=== PATIENT | male | born 1940 | race Caucasian/White ===

== ENCOUNTER 2016-07-21 12:16 | Inpatient (IN) | payer OTHER ==
--- NOTE | ~2016-07-21 | CN ---
Consultation Report [facility] [address] [place]. [address] NAME: KAYY ERAZO : 42 STATUS : ADM IN PAT#: [id number] AGE: 76 ADM/REG DATE : 07/21/16 MR#: [id number] REPORT SERV DATE: 07/22/16 DICTATED BY: BAKARI NATARAJAN DATE: 07/22/16 REPORT STATUS : Draft TRANSCRIBED BY: MODL DATE: 07/22/16 CONSULTATION REPORT DATE OF CONSULTATION: 07/22/2016 REASON FOR CONSULTATION: Evaluate and treat presumed congestive heart failure. HISTORY OF PRESENT ILLNESS: A 76-year-old man, known to me from prior care, followed by Dr. Flores, has history of mildly diminished LVF with estimations varying between 40% and 50%, coronary artery disease with remote coronary stents, 05/10 catheterization demonstrating chronic total occlusion of the right coronary artery with brisk collateral filling, carotid disease, hypertension, hypercholesteremia, critical aortic stenosis, 07/12 TAVR at [place]. The patient denies recent melena, nosebleeds, hematemesis, and chest pain. He was admitted with confusion, was found to have anemia and worsening renal function. PAST MEDICAL HISTORY: 1. CAD - CT of the right coronary artery identified. Reported stents, but no documentation is available. 2. Status post TAVR. 3. Carotid disease and remote stroke - 05/11 duplex without critical stenosis. 4. Hypercholesterolemia. 5. Hypertension. 6. Chronic kidney disease. 7. Cardiomyopathy - presumed ischemic cardiomyopathy with 05/10 echo estimating LVEF 45% to 50%, 05/10 LVEF 40% with posterobasal akinesis, and 08/10 echo estimating LVEF 50%. 8. Chronic kidney disease. HOME MEDICATIONS: Atorvastatin 40 mg daily, omeprazole 40 mg daily, tamsulosin 0.4 mg daily, fenofibrate 160 mg daily, amlodipine 5 mg daily, Lasix 40 mg daily, Plavix 75 mg daily, aspirin 81 mg daily, carvedilol 12.5 mg once a day, and KCl supplement. ALLERGIES: MORPHINE, STREPTOMYCIN, PENICILLIN, AND TERRAMYCIN. SOCIAL HISTORY: The patient x2 with two children. 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 He is a former smoker of up to three packs a day, having quit some 40 years ago. He does not drink alcohol. He does not exercise. FAMILY HISTORY: Noncontributory. REVIEW OF SYSTEMS: Recent confusion. PHYSICAL EXAMINATION: Consultation Report [facility] [address] [place]. [address] NAME: KAYY ERAZO : 42 STATUS : ADM IN [facility]#: [id number] AGE: 76 ADM/REG DATE : 07/21/16 MR#: [id number] REPORT SERV DATE: 07/22/16 DICTATED BY: BAKARI NATARAJAN DATE: 07/22/16 REPORT STATUS : Draft TRANSCRIBED BY: MODL DATE: 07/22/16 GENERAL: In no acute distress. VITAL SIGNS: 167/70, respirations 18, temperature 97.5, pulse 64 and regular. NECK: No JVD. Bilateral carotid bruits. LUNGS: Clear with diminished breath sounds at both bases. CARDIAC: 2/6 systolic murmur. No diastolic murmur. Nondisplaced PMI. ABDOMEN: Obese. EXTREMITIES: +1/4 bilateral pretibial pitting edema. LABORATORY DATA: BUN and creatinine 31 and 3.37 yielding EGFR 20. Hematocrit 21.3% and platelet count 121,000. Troponin I 0.03 and BNP 1117. EKG: Sinus rhythm at a rate of 70, normal axis intervals, poor R-wave progression, V1 through V4. Echocardiogram today with nominal aortic valve function noted. LVEF 40%. Mild mitral stenosis and mitral regurgitation. ASSESSMENT AND PLAN: 1. Anemia - is symptomatic. Defer workup. We transfused hematocrit around 30% because he has elevated BNP, which is likely precipitated by metabolic stress of anemia. 2. Ischemic cardiomyopathy - has had mildly reduced LVF. Increased symptoms and BNP likely precipitated by metabolic stress of anemia. Transfuse as above. Reduce blood pressure starting with hydralazine given his chronic kidney disease. Hydralazine 25 mg q.8 hours ordered. 3. Chronic kidney disease/? acute kidney injury - deferred. 4. PAD - stable. 5. Coronary artery disease - no angina. Continues on aspirin and Plavix. 6. Carotid disease - has had history of stroke. Now on dual antiplatelet therapy and asymptomatic. 7. Status post aortic valve replacement - nominal function by echo. 8. Mitral stenosis and mitral regurgitation - mild. Thank you for this consultation. /MODL Bakari Natarajan M.D. / [id number] CC: Jacoby Sanchez, DO Consultation Report [facility] [id number] [place] [address] NAME: KAYY ERAZO : 41 STATUS : ADM IN PAT#: [id number] AGE: 76 ADM/REG DATE : 07/21/16 MR#: [id number] REPORT SERV DATE: 07/22/16 DICTATED BY: BAKARI NATARAJAN DATE: 07/22/16 REPORT STATUS : Draft TRANSCRIBED BY: MODL DATE: 07/22/16 Venancio Flores M.D.
--- NOTE | ~2016-07-21 | CN ---
Consultation Report [facility] [address] [place]. [address] NAME: KAYY ERAZO : 42 STATUS : ADM IN [facility]#: [id number] AGE: 76 ADM/REG DATE : 07/21/16 MR#: [id number] REPORT SERV DATE: 07/27/16 DICTATED BY: AUBREY JERRY III DATE: 07/26/16 REPORT STATUS : Draft TRANSCRIBED BY: MODL DATE: 07/26/16 SURGICAL CONSULTATION DATE OF CONSULTATION: 07/26/2016 HISTORY OF PRESENT ILLNESS: The patient is a 76-year-old white male admitted on 07/21/2016 secondary to decompensated heart failure. The patient has numerous comorbid issues and has been evaluated for a number of these during this hospitalization. He has been seen by the Nephrology Service for significant chronic kidney disease, which has been progressive of late. The patient has also been seen by the Urology Service and noted to have some abnormal findings on cystoscopy involving his bladder with an abnormal trabeculation and could not find the left ureteral orifice, but no other findings were noted and no removal of stones was accomplished, even though the patient allegedly has a bladder stone as well as some other renal stone issues. The patient has also been seen by the Hematology Service for a cytopenia that was felt to be secondary to acute illness and low vitamin B12, but no other issues were identified. The patient has improved with therapy including diuretics and seems to be more "himself." The patient was also noted to have some encephalopathy when admitted and his ammonia level was elevated, presumably due to his heart failure and congestive liver disease. The patient also has COPD and greater than 40 pack year history of smoking, but has not smoked since he was 46 years old. MEDICATIONS: His home medications are as follows: The patient is on Norvasc 5 mg daily, 81 mg enteric coated daily, Lipitor 40 mg at bedtime, Coreg 25 mg twice a day, Plavix 75 mg daily, fenofibrate 160 mg daily, Lasix 40 mg daily, Prilosec 40 mg at bedtime, potassium chloride 20 mEq daily, and Flomax 0.4 mg daily. The patient is not on home oxygen. ALLERGIES: THE PATIENT IS ALLERGIC TO PENICILLIN WITH RASH AND NAUSEA; SULFA WITH NAUSEA AND RASH; MORPHINE, CONFUSION; ERYTHROMYCIN BASE, RASH; AND TERRAMYCIN, UNKNOWN REACTION. SOCIAL HISTORY: He lives alone, is , and is able to drive and is fairly independent, but admits that he does not eat properly and eats mostly junk and does not eat square meals per se. FAMILY HISTORY: Noncontributory. SOCIAL HISTORY: As previously stated, he has 45 pack years of cigarette use, but presently has been off cigarettes for a number of years; when he had his first heart attack when he was 46 years old, he stopped. His alcohol use is none, although he drank some beer many years ago. The patient does not really do much. 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 REVIEW OF SYSTEMS: Consistent with a pleasant gentleman, seemingly alert and oriented x3 with no acute distress Consultation Report [facility] [id number] [facility] [place]. [address] NAME: KAYY ERAZO : 42 STATUS : ADM IN PAT#: [id number] AGE: 76 ADM/REG DATE : 07/21/16 MR#: [id number] REPORT SERV DATE: 07/27/16 DICTATED BY: AUBREY JERRY III DATE: 07/26/16 REPORT STATUS : Draft TRANSCRIBED BY: ISABELLA DATE: 07/26/16 at the time of this exam with a binasal cannula in place, IV going, and the patient was up ambulatory going to the bathroom unassisted. The patient's history of chronic obstructive pulmonary disease is documented. He has a history of a TAVR valve placed a couple of years ago at [facility] in [place] and feels like he is doing well from that. He has a history of a CVA or stroke back in 2009 and feels that this affected his vision. He has a past history of hypertension, first myocardial infarction at age 46, history of a significant heart murmur, history of high cholesterol, history of coronary artery disease with an occluded right coronary and collateralization, history of aortic stenosis post TAVR valve, history of heart catheterizations and stents. 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 He has a history of arthritis, gastroesophageal reflux disease, and hiatal hernia, which seems to be controlled with his proton pump inhibiting medication. He has a history of kidney stones and benign prostatic hypertrophy, followed by Dr. Sp Tanner. He had a cysto and TURP more than five years ago. PHYSICAL EXAMINATION: GENERAL: The patient is an ill-appearing, mildly obese white male, in no acute distress. HEENT: Showed no lateralization. NECK: Supple with arthritic changes only. CHEST: Showed increased AP diameter with decreased inspiratory effort and a few scattered rhonchi. ABDOMEN: Soft and nontender with no organomegaly. No rebound tenderness. Bowel sounds were normal, and his abdomen was protuberant, but without hernias or organomegaly changes. EXTREMITIES: Grossly anatomic and atrophic. NEUROLOGIC: He is alert and oriented x3, but a little confused when asked very complex questions. Workup on the patient to this point has revealed significant findings regarding his gallbladder with his initial CT scan done on 07/21/2016, showing significant gallbladder stones in the neck of the gallbladder and some contraction of the gallbladder was mentioned on the CT scan with thickening of the gallbladder wall with the stones noted to be in the gallbladder neck. On 07/22/2016, the patient's liver function tests were noted to be normal with normal bilirubin, both direct and indirect, and alkaline phosphatase was also normal. He had an ultrasound done on 07/24/2016 that showed slight wall thickening with stones noted again and the ducts were not dilated. HIDA scan done on 07/25/2016 showed an ejection fraction of 11% with gallbladder filling in approximately 45 minutes with a normal bowel excretion. The patient's BNP on admission was 1117.4. His hemoglobin A1c was 4.5 and his ammonia was elevated at 41. ADMITTING DIAGNOSES: Decompensated heart failure; chronic obstructive pulmonary disease; coronary artery disease with occluded right coronary with collaterals; pancytopenia; acidosis; progressive chronic kidney disease; history of cholelithiasis dating back to at least 2010; encephalopathy, presumably related to elevated ammonia; abnormal bladder with trabeculation and stones in the urinary system. The patient is chronically anticoagulated with Plavix and aspirin. Consultation Report [address] [place]. [address] NAME: KAYY ERAZO : 42 STATUS : ADM IN [facility]#: [id number] AGE: 76 ADM/REG DATE : 07/21/16 MR#: [id number] REPORT SERV DATE: 07/27/16 DICTATED BY: AUBREY JERRY III DATE: 07/26/16 REPORT STATUS : Draft TRANSCRIBED BY: ISABELLA DATE: 07/26/16 IMPRESSION: He has essentially asymptomatic gallbladder disease, although he does give a history of some heartburn in the past, but that was relieved by Tums and is actually better on the proton pump inhibitor at this point. He is at very high risk for any type of surgery or general anesthesia, but not prohibitive risk. Would recommend surgery only if he develops symptoms, and I have spent time discussing with the patient the types of symptoms to be aware of and need to be in contact with his physicians, especially his surgeon if he is developing these types of symptoms, which were enumerated and spent approximately 15 minutes going over the symptoms and expectations of gallbladder disease should symptoms develop. I have discussed with the patient the risk of surgery and risk of anesthesia in his present condition and the concern with the overall comorbid issues that the patient clearly has. MECHE/ISABELLA Aubrey Jerry III, M.D. / [id number] CC: Riki Catalan M.D. Alexander Stratienko, M.D. Oliver Benton III, M.D.
--- NOTE | ~2016-07-21 | HP ---
History And Physical [place] [id number] [facility] [place]. [address] NAME: KAYY ERAZO : 42 STATUS : ADM IN [facility]#: [id number] AGE: 76 ADM/REG DATE : 07/21/16 MR#: [id number] REPORT SERV DATE: 07/24/16 DICTATED BY: ROSSY BATISTA DATE: 07/21/16 REPORT STATUS : Draft TRANSCRIBED BY: MODL DATE: 07/21/16 DATE OF ADMISSION: 07/21/2016 REASON FOR ADMISSION: Shortness of breath. PRIMARY CARE DOCTOR: Appears to be unclear. Sees a airline hostess [facility], Dr. Gaspar. HISTORY OF PRESENT ILLNESS: This is a 76-year-old male with a known history of critical aortic stenosis, had a TAVR in September 2014 under the care of Dr. Alfaro, known history of ischemic cardiomyopathy, LVEF last known 40%, known history of BPH, history of stroke, hypertension, history of CAD with a known heart catheterization showing occluded RCA with collaterals. The patient comes in from Dr. Gaspar's office with significant PND, shortness of breath, as well as having a mild nonproductive cough, thought to have been near to baseline creatinine of 2.5 and 3.0 with a presenting creatinine of 3.11. The patient has been endorsing significant shortness of breath. The family states he has been hallucinating, thinking that there are dogs in the house and does not know where he is. On questioning today, he is A and O x4. He is a bit slow to speech. The patient denies any focal neurological weakness or decreased sensation. Chest x-ray with bilateral alveolar infiltration. The patient denies any fevers or chills. No nausea. No vomiting. No diarrhea. No chest pain. No chest pressure. Positive shortness of breath. Noted BNP 1100. The patient states he has had increased abdominal distention, is well and increased weight gain. PAST MEDICAL HISTORY: See above. PAST SURGICAL HISTORY: See above. ALLERGIES: SULFA, HIVES; PENICILLIN, HIVES; TERRAMYCIN, UNKNOWN REACTION; MORPHINE, QUESTIONABLE. SOCIAL HISTORY: Does have about a possible [id number] history of smoking in the past, smoked about 2 to 3 packs a day, multiple years ago for several years. No alcohol. No drug use. HOME MEDICATIONS: See MAR. We will continue what is relevant. FAMILY HISTORY: Hypertension at least in one parent. REVIEW OF SYSTEMS: Done, negative see HPI, otherwise negative. OBJECTIVE: VITAL SIGNS: Currently, was 150/66, 97.1, temp 87, pulse 20, respirations, 93% on 2 L. Not on home oxygen. GENERAL: No acute distress. History And Physical [address] [address] NAME: KAYY ERAZO : 42 STATUS : ADM IN [facility]#: [id number] AGE: 76 ADM/REG DATE : 07/21/16 MR#: [id number] REPORT SERV DATE: 07/24/16 DICTATED BY: ROSSY BATISTA DATE: 07/21/16 REPORT STATUS : Draft TRANSCRIBED BY: ISABELLA DATE: 07/21/16 HEENT: SNEHA. No scleral icterus. CARDIOVASCULAR: Does have a 2/6 systolic aortic murmur. RESPIRATORY: Minimal bibasilar crackles. Mild expiratory wheezes. ABDOMEN: Positive distention, mild tenderness to palpation, periumbilical, mild. No rebound tenderness. No peritoneal signs. EXTREMITIES: A 1 to 2+ pitting edema, left greater than right. NEUROLOGIC: A and O x4. GCS is 15, but a bit slurred speech. PSYCH: Unable to assess given neuro status. LABS: White count 2.8, hemoglobin 7.2, MCV 92, platelets 133,000, 145 sodium, potassium 4.1, 25 creatinine, baseline likely 2.5-3.0, GFR 20 per the family, 26 BUN, BNP 1100, ABG 10.42/28/57, 21%, troponins negative. EKG: Has an incomplete intraventricular conduction delay. ST-segment elevation in leads V2 but that is isolated. ASSESSMENT: 1. Acute decompensated heart failure, LVEF last known 40%, status post TAVR in 2014. 2. Clinical chronic obstructive pulmonary disease with wheezing, 3 out 3 GOLD criteria, may be mucopurulent 1 time cough. 3. History of coronary artery disease with occluded RCA with collaterals. 4. Pancytopenia with systemic inflammatory response syndrome. 5. Acidosis. 6. Progressed chronic kidney disease. PLAN: 1. Admit to myself, Dr. Batista. Has elevated BNP, alveolar infiltration, positive PND. As a result, we will ask Dr. Alfaro to follow along, given that this is his patient. Angel with Bumex t.i.d. Get an echo if not done in the last six months. Get a CT of the abdomen and pelvis regarding the ascites to rule out any liver cirrhosis, CMP and QT, bilateral lower extremity ultrasounds. Also, we will go ahead and place him on low-dose carvedilol given heart failure, 1.5 L fluid restriction. 2 g sodium restricted diet. Stool guaiac given his pancytopenia, Protonix 40 IV b.i.d. Transfuse less than 7. Slow transfusion rate 4 hours per TRBC. 2. Given his hallucination history, it may have been hypoxia associated. His CT of the head without ammonia, B12, folate, given wheezing Solu-Medrol, Spiriva, and get a peripheral smear regarding pancytopenia. See rest of my orders. The patient has been placed on Levaquin and Flagyl until his sepsis workup is completed. It took over 60 minutes to do. Reference [employer] and [employer]. WST/MODL Rossy Batista DO History And Physical [address] [address] NAME: KAYY ERAZO : 42 STATUS : ADM IN PAT#: [id number] AGE: 76 ADM/REG DATE : 07/21/16 MR#: [id number] REPORT SERV DATE: 07/24/16 DICTATED BY: ROSSY BATISTA DATE: 07/21/16 REPORT STATUS : Draft TRANSCRIBED BY: MODL DATE: 07/21/16 / [id number] CC: DO Venancio Luz M.D.
--- NOTE | ~2016-07-21 | CN ---
Consultation Report [facility] [address] [place]. [address] NAME: KAYY ERAZO : 42 STATUS : ADM IN [facility]#: [id number] AGE: 76 ADM/REG DATE : 07/21/16 MR#: [id number] REPORT SERV DATE: 07/23/16 DICTATED BY: JEANNA MARIE DATE: 07/22/16 REPORT STATUS : Draft TRANSCRIBED BY: MODL DATE: 07/22/16 CONSULTATION DATE OF CONSULTATION: 07/22/2016 I am seeing this patient for Dr. Tanenr in his absence. This consult is from Dr. Sanchez regarding hydroureteronephrosis on the left. 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 He was found to have a creatinine of 3.11, which is significantly increased from his baseline of 1.4. Since admission, he has been continuing to have an elevation of his creatinine. It is 3.[address] scan was performed to see if there was any obstructive component. I did find left hydroureteronephrosis and read a left distal ureteral stone. Dr. Guerra and I looked at the films together today. The hydroureteronephrosis occurs next to a calcification. If this is a calcification in the ureter, it is embedded in the wall without edema. It may very well actually be a calcification in a ureteric vessel. The hydronephrosis of the ureter is mild to moderate. It does not transmit into the renal pelvis significantly. He did have a postvoid residual urine performed. He voided 350 mL and his postvoid residual urine was 340 mL. He was offered a catheter at that time but refused stating catheters made him sick. A CT scan also showed some findings which could be consistent with cholecystitis but his liver function tests are normal and he has none of those symptoms either. It is quite worrisome today that his white blood cell count decreased to 1.8, hemoglobin is 6.8, and he is currently receiving blood. The patient specifically denies any difficulty voiding. He has been chronically on Flomax for a number of years. He states that each time he sees Dr. Tanner in the office, he is told everything looks fine. I do not have access to his records, so I am not entirely certain if it means he looks fine from the stone standpoint or the PSA standpoint or what. PAST MEDICAL HISTORY: Significant for chronic kidney disease, currently worsening; peripheral vascular disease; cardiovascular disease; kidney stones; hypertension; gastroesophageal reflux disease; history of an SC; hyperlipidemia. SURGICAL HISTORY: He had balloon dilation and coronary artery stents placed in July 2013. SOCIAL HISTORY: He used to smoke cigarettes but does not currently. He is . Denies any alcohol use. ALLERGIES: PENICILLIN, SULFA, MORPHINE, ERYTHROMYCIN BASE, STREPTOMYCIN. MEDICATIONS ON ADMISSION: Norvasc, aspirin 81 mg a day, Lipitor, Coreg, Plavix, fenofibrate, Consultation Report [address] [address] NAME: KAYY ERAZO : 42 STATUS : ADM IN [facility]#: [id number] AGE: 76 ADM/REG DATE : 07/21/16 MR#: [id number] REPORT SERV DATE: 07/23/16 DICTATED BY: JEANNA MARIE DATE: 07/22/16 REPORT STATUS : Draft TRANSCRIBED BY: MODL DATE: 07/22/16 Lasix, Krystinalosec, Libanor-Reji, and Flomax. REVIEW OF SYSTEMS: GENERAL: He denies fever or chills. NEUROLOGIC: He was having hallucinations upon admission. The nursing staff states they have seen no signs of that since admission. LUNGS: As above. HEART: As above. GI: Denies symptoms. : The patient denies symptoms. PHYSICAL EXAMINATION: VITAL SIGNS: He has been afebrile. Blood pressure 167/70, pulse of 64, respirations of 18. 2 L nasal cannula, saturating 93%. He had 700 mL in yesterday and 460 mL out. GENERAL: He is in no acute distress. NEUROLOGIC: Alert and oriented x3. PSYCHIATRIC: Appropriate. HEENT: Facial features symmetric. Eyes, sclerae anicteric. NECK: Supple. LUNGS: He has decreased inspiratory effort bilaterally. HEART: Regular rate and rhythm. ABDOMEN: Obese and soft. His bladder is not palpable. EXTREMITIES: Show 3+ pitting edema bilaterally. : Revealed uncircumcised phallus with a large cyst of the foreskin on the ventral aspect. The cyst is nontender and fluctuant, is not solid, is not worrisome for a mass. The foreskin is easily retracted. His meatus is normal. Bilateral descended testes without masses. LABORATORY STUDIES: Today show sodium of 144, potassium of 4.3. His creatinine has increased to 3.37. White blood cell count has dropped to 1.8 with hemoglobin of 6.8 and hematocrit of 21.3 and platelets of 121. CT scan as stated above. PROCEDURE: I discussed with the patient that his kidney function is deteriorating. I explained to him that he is leaving urine behind even though he does not feel like he is. I recommended that we add another medication to his Flomax; however, it will not take effect immediately. He does state he does not want to be on dialysis. I recommended we place a Erickson catheter and see if having the catheter in place and draining for several days helps any with his kidney function. After discussion, the patient agrees to allow me to place Erickson catheter. After prep, an 18-Azerbaijani coude catheter was placed, 10 mL were placed in the balloon and the balloon was seated at the bladder neck. 300 mL of malodorous cloudy urine was drained. Erickson catheter was secured to the patient. IMPRESSION: Consultation Report [place] [id number] [facility] [place]. [address] NAME: KAYY ERAZO : 42 STATUS : ADM IN [facility]#: [id number] AGE: 76 ADM/REG DATE : 07/21/16 MR#: [id number] REPORT SERV DATE: 07/23/16 DICTATED BY: JEANNA MARIE DATE: 07/22/16 REPORT STATUS : Draft TRANSCRIBED BY: ISABELLA DATE: 07/22/16 1. Mild urinary retention, possibly infected urine. 2. Cyst of the foreskin. 3. Left hydroureteronephrosis with calcification near or in the ureter but not responsible for the hydronephrosis. 4. Increasing creatinine. PLAN: 1. Add finasteride. 2. Send urine for culture. 3. We will see if his creatinine responds to bladder drainage. 4. We will have Dr. Tanner address the foreskin cyst as an outpatient. ELIZABETH/ISABELLA Jeanna Marie M.D. / [id number] CC: DO Venancio Luz M.D.
--- NOTE | ~2016-07-21 | OP ---
Record Of Operation [facility] [address] [place]. [address] NAME: KAYY ERAZO : 42 STATUS : ADM IN [facility]#: [id number] AGE: 76 ADM/REG DATE : 07/21/16 MR#: [id number] REPORT SERV DATE: 07/25/16 DICTATED BY: SP GARCIA III DATE: 07/25/16 REPORT STATUS : Draft TRANSCRIBED BY: MODL DATE: 07/25/16 DATE OF PROCEDURE: 07/25/2016 PROCEDURE: Cystoscopy attempted retrograde and cystogram. PREOPERATIVE DIAGNOSIS: Left ureteral dilatation with possible ureteral calculus. POSTOPERATIVE DIAGNOSIS: Left ureteral dilatation with possible ureteral calculus. ANESTHESIA: General. SURGEON: Sp Garcia M.D. DESCRIPTION OF PROCEDURE: Following induction of adequate general anesthesia, the patient was placed in the dorsal lithotomy position, prepped and draped in sterile fashion. The urethra was noted to have some wide-bore strictures. Upon entering the prostate, the prostatic lobes met in the midline more toward the bladder neck. There was a previous resection that had been done by me. The bladder neck was severely upsloping and I was able to maneuver the scope into the bladder neck, but the scope was somewhat fixed. It was severely trabeculated with numerous cellules and diverticula. I put the 70-degree lens in and found the right orifice. The left orifice was not visible in the trigonal ridge. It appeared to be within a diverticulum, which I could not negotiate with the rigid or the flexible scope. I then attempted to put a catheter and do a cystogram to see if this dilatation might be reflux and had problems getting up and over the bladder neck. I have scoped this patient number of times and had similar problems. I was finally able to put a catheter and over a guide, we did a cystogram that showed a very trabeculated bladder. No reflux. I left the catheter in place. IMPRESSION: Left dilatation. The patient has, for a number of years, had bilateral hydronephrosis; however, nuclear scan showed no obstruction and his creatinine had remained normal. I am not sure this calcification is actually in the ureter. There is dilatation below the calcification and I think the obstruction is at the bladder level. To access this, probably would require a nephrostomy. He tolerated the procedure well. OB/MODL Sp Garcia III, M.D. / [id number] CC: Riki Catalan M.D.
--- NOTE | ~2016-07-21 | CN ---
Consultation Report [facility] [address] [place]. [address] NAME: KAYY RENTERIA : 42 STATUS : ADM IN [facility]#: [id number] AGE: 76 ADM/REG DATE : 07/21/16 MR#: [id number] REPORT SERV DATE: 07/26/16 DICTATED BY: NACHO NAZARIO DATE: 07/26/16 REPORT STATUS : Draft TRANSCRIBED BY: MODL DATE: 07/26/16 CONSULTATION DATE OF CONSULTATION: REASON FOR REFERRAL: Pancytopenia. HISTORY OF PRESENT ILLNESS: Mr. Renteria is a gentleman who presented to the hospital on 07/21/2016. He presented with hallucinations, worsening renal function, bilateral pulmonary infiltrates. He was quite ill and has improved since that time. He had a CBC on admission with a white blood cell count of 2.8, hemoglobin 7.2, and platelets of 133,000. His white count the next day dropped to 1.8 with a hemoglobin of 6.8 and platelets of 121,000. Peripheral blood smear at that time showed no tumor cells and no left shift. He has clinically improved and his white count and platelets have improved, both were normal yesterday. His mild leukopenia today. He does have some chronic anemia related to chronic kidney disease. B12 level was sent which was borderline. As noted above, he has chronic kidney disease and chronic anemia. He has chronic heart disease status post TAVR, that is improved and heart failure which is intermittently problematic. REVIEW OF SYSTEMS: Complete review of systems is negative. FAMILY HISTORY: Negative for blood disease. PHYSICAL EXAMINATION: GENERAL: Reveals a well-developed gentleman. VITAL SIGNS: 96.6, 114/56, 73, 16. HEENT: Eye exam shows that the lids and conjunctivae are without lesions. Mouth shows no abnormalities. SKIN: Shows no rash or nodules. LYMPH NODE SURVEY: Shows no adenopathy. CARDIOVASCULAR: Reveals regular rate and rhythm. There is a 1/6 murmur. There is trace peripheral edema. LUNGS: Clear to auscultation bilaterally. Normal respiratory effort. GI: Shows no mass or abnormality. PSYCHIATRIC: Shows a somewhat flat affect. NEUROLOGIC: Shows cranial nerves to be grossly intact. DATA REVIEW: Reviewed all of his laboratory studies and old records as noted above. ASSESSMENT: 1. Pancytopenia related to his acute illness, now resolved. Consultation Report [facility] [address] [place]. [address] NAME: KAYY RENTERIA : 42 STATUS : ADM IN PAT#: [id number] AGE: 76 ADM/REG DATE : 07/21/16 MR#: [id number] REPORT SERV DATE: 07/26/16 DICTATED BY: NACHO NAZARIO DATE: 07/26/16 REPORT STATUS : Draft TRANSCRIBED BY: MODL DATE: 07/26/16 2. Chronic anemia, which is stable. 3. Borderline B12 level. I recommend 1 mg of B12 orally daily. This should be able to replace his levels through mass action (rather than active absorption). 4. As his counts are better, I will be available as needed. OPAL/ISABELLA Nacho Nazario M.D. / [id number] CC: Riki Catalan M.D. Stuart G Ginther, M.D.
--- NOTE | ~2016-07-21 | ECH ---
Echocardiogram [address] [place]. [address] NAME: KAYY ERAZO : 42 STATUS : ADM IN [facility]#: [id number] AGE: 76 ADM/REG DATE : 07/21/16 MR#: [id number] REPORT SERV DATE: 07/24/16 DICTATED BY: BAKARI ALFARO DATE: 07/22/16 REPORT STATUS : Draft TRANSCRIBED BY: MODL DATE: 07/22/16 ORDERING: Jacoby Sanchez DO. INDICATIONS: Heart failure, status post aortic valve replacement. STUDY QUALITY: Fair. MEASUREMENTS (in cm) Aortic Root = 2.7. Septal Wall = 1.3 Posterior Wall = 1.3 LV Diastolic = 5.2 LV Systolic = 3.6 Left Atrium = 4.8 MARLEN: 47 mL/meter square. LVEF: By Castro's method 40% (may differ from visual estimation of LVEF). E/A: Undefined. 2-D INTERPRETATION: 1. Aortic Valve: Well-seated aortic valve bioprosthesis. 2. Aortic Root: Normal. 3. Mitral Valve: Heavy mitral annular calcification with leaflet thickening. Adequate and diastolic leaflet excursion to rule out critical mitral stenosis. 4. Tricuspid Valve: Morphologically normal without prolapse. 5. Pulmonic Valve: Grossly normal. 6. Left Ventricle: mild global hypocontractility with ejection fraction estimated to be in the range of 40%. 7. Right Ventricle: Normal. 8. Pericardial Space: No effusion. 9. Intracardiac Masses: None. 10.Other: None. 11.Atria: Mild left atrial dilatation. DOPPLER/COLOR FLOW: No AR. Peak transvalvular prosthetic valve gradient 13 mmHg. Mitral valve area by pressure half time 3.3 sq cm. 1+ TR. 1+ NC. 2+ MR. FINAL IMPRESSION: 1. Mild left ventricular hypertrophy. 2. Normal left Ventricular size. 3. Mild left ventricular global hypocontractility with ejection fraction estimated 40%. 4. Well-seated mitral valve bioprosthesis. 5. Mild mitral valve stenosis and mild mitral regurgitation. 6. Nominal aortic valve bioprosthetic gradient. 7. Indeterminate pulmonary artery pressure. /MODL Echocardiogram [address] [place] [address] NAME: KAYY ERAZO : 42 STATUS : ADM IN PAT#: [id number] AGE: 76 ADM/REG DATE : 07/21/16 MR#: [id number] REPORT SERV DATE: 07/24/16 DICTATED BY: BAKARI ALFARO DATE: 07/22/16 REPORT STATUS : Draft TRANSCRIBED BY: ISABELLA DATE: 07/22/16 Bakari Alfaro M.D. / [id number] CC: DO Venancio Luz M.D.
--- NOTE | ~2016-07-21 | DS ---
Discharge Summary [place] [id number] [place]. [address] NAME: KAYY ERAZO : 42 STATUS : ADM IN [facility]#: [id number] AGE: 76 ADM/REG DATE : 07/21/16 MR#: [id number] REPORT SERV DATE: 07/27/16 DICTATED BY: SILVIA LUDWIG DATE: 07/27/16 REPORT STATUS : Draft TRANSCRIBED BY: ISABELLA DATE: 07/27/16 ADMISSION DATE: 07/21/2016 DISCHARGE DATE: DIAGNOSES: 1. Enckj-uf-czrawxg systolic congestive heart failure exacerbation/ischemic cardiomyopathy with ejection fraction of 45%. 2. Chronic obstructive pulmonary disease exacerbation. 3. Pancytopenia, improved. 4. Gallbladder disease. 5. Stage IV chronic kidney disease. 6. Encephalopathy, resolved. 7. Left mild hydronephrosis with nephrolithiasis. FOLLOWUP: The patient is to follow up with his urologist, Dr. Tanner, and also the patient is to follow up with the primary care physician in one to two weeks and to follow with Dr. Stuart Jerry, General Surgery, for chronic gallbladder disease in three to four weeks and to follow up with Dr. Alfaro in two weeks, his mold filler, and also the patient is to follow up with his compressor battery pellets, Dr. Gaspar, in one week. DISCHARGE MEDICATIONS: Amlodipine 5 mg p.o. daily, enteric-coated aspirin 81 mg p.o. daily, Lipitor 40 mg p.o. at bedtime, Coreg 12.5 mg p.o. b.i.d., Plavix 75 mg p.o. daily, vitamin B12 at 1000 mcg p.o. daily, fenofibrate 160 mg p.o. daily, Levaquin 750 mg p.o. q.48 hours for 2 doses, sodium bicarb 650 mg p.o. b.i.d., Prilosec 40 mg p.o. at bedtime per home dose, tamsulosin 0.4 mg p.o. b.i.d., torsemide 20 mg p.o. daily. The patient was informed to stop his Lasix. Hydralazine 75 mg p.o. t.i.d., Flagyl 500 mg p.o. t.i.d. for four days, Combivent Respimat one puff inhaled q.6 hours, albuterol MDI two puffs inhaled every four hours p.r.n. CONSULTANTS: Nephrology, Dr. Gomez; Urology, Dr. Marie and Dr. Tanner; Cardiology, Dr. Alfaro; Hematology/Oncology, Dr. Clark. HOSPITALIST: Dr. Jacoby Sanchez, Dr. Ludwig. PROCEDURES: Cystoscopy and attempted retrograde cystogram by Dr. Tanner. HOSPITAL COURSE: Please see H and P dictated by Dr. Jacoby Sanchez. This is a 76-year-old male with a past medical history of ischemic cardiomyopathy, being followed by mold filler, Dr. Alfaro, as well as history of CKD, being followed by [facility] with Dr. Gaspar. The patient also has known history of aortic stenosis, status post TAVR in 2014 and BPH, being followed by urologist, Dr. Tanner, presented with a chief complaint of shortness of breath and some abdominal mild distention secondary to some underlying fluid and fluid overload. The patient was admitted to the hospitalist service, initially seen by Dr. Jacoby Sanchez with a Cardiology consultation to Dr. Alfaro. Also, the patient was placed on lactulose for encephalopathy on admission, which resolved, it is most likely secondary to his congestive heart failure exacerbation. The patient was diuresed and also Discharge Summary [address] [address] NAME: KAYY ERAZO : 42 STATUS : ADM IN [facility]#: [id number] AGE: 76 ADM/REG DATE : 07/21/16 MR#: [id number] REPORT SERV DATE: 07/27/16 DICTATED BY: SILVIA LUDWIG DATE: 07/27/16 REPORT STATUS : Draft TRANSCRIBED BY: MODPop DATE: 07/27/16 his nephrology group with the [facility] was consulted. The patient was seen by Dr. Gomez and his PA. The patient was transitioned over to torsemide for better diuresing. The patient's baseline creatinine was known to be around 3; however, due to diuresing, he did have some progression of his creatinine up to 3.9, and remained around 3.8 to 3.9, which according to Nephrology is a new baseline for the patient. However, in order to improve the creatinine, the patient required more fluid and be back in fluid overload, therefore, cannot tolerate a lot of fluid in his system and was deemed stable for discharge by Nephrology and to follow up in clinic in one week. He was seen also by Urology, Dr. Marie and Dr. Tanner with an attempted cystoscopy and retrograde cystogram, please refer to dictation. The patient did require Erickson catheter during the hospital course and continued to be managed by Urology. The patient also was seen by hematology/oncologist, Dr. Clark, for pancytopenia, which improved with treatment during this hospital course. He was initiated on oral B12 as recommended by Hematology; however, his chronic anemia is multifactorial. Also important to know on admission, the patient had a CT of the abdomen and pelvis without contrast, which revealed partially contracted and thickened gallbladder with mild infiltration with cholelithiasis. It was noted on admission that the patient had some mild epigastric discomfort, which resolved during this hospital course. He did have a followup gallbladder ultrasound that revealed a slight prominence of the gallbladder wall thickness with cholelithiasis, but otherwise negative ultrasound of the gallbladder. He later had a followup HIDA scan that revealed an abnormal response suggesting biliary dyskinesia with ejection fraction of 11%. However, the patient remained afebrile and completely asymptomatic, eating well. No nausea, vomiting. No abdominal discomfort. This was discussed with the patient as well as general surgeon, Dr. Jerry, who was consulted to evaluate the patient. Considering the patient was asymptomatic, I also agree to follow up with the patient as an outpatient. The patient has multiple comorbidities, and at this point, would only recommend surgery only if the patient became symptomatic. He was empirically continued on Levaquin and Flagyl during this hospital course. The patient is to follow up with Dr. Jerry as an outpatient. This also was discussed with his mold filler, Dr. Alfaro, who stated if the patient does require elective surgery, he will risk stratify the patient at that time for preop clearance. At the time of this discharge, the patient was much improved. However, will be checked by nursing staff for any qualification for home oxygen, alert and oriented x3. Ready to return to home. All the patient's diagnoses and recommendations have been explained to the patient in detail. The patient is to follow up closely with his specialists and approved for discharge by all specialists. This discharge required greater than 35 minutes. [facility]/ISABELLA Silvia Ludwig M.D. / [id number] CC: Discharge Summary [address] [address] NAME: KAYY ERAZO : 42 STATUS : ADM IN [facility]#: [id number] AGE: 76 ADM/REG DATE : 07/21/16 MR#: [id number] REPORT SERV DATE: 07/27/16 DICTATED BY: SILVIA LUDWIG DATE: 07/27/16 REPORT STATUS : Draft TRANSCRIBED BY: ISABELLA DATE: 07/27/16 Riki Catalan M.D. Oliver Benton III, M.D. Robert Barnett III, M.D. Alexander Stratienko, M.D. Stuart G Ginther, M.D.
[2016-07-21 11:15] LABS: ALLENS TEST Pos; BE (BASE EXCESS) -5.9 MEQ/L (0 +/- 2.5); CARBOXYHEMOGLOBIN 1.7 % (0-3); HCO3 (ACTUAL BICARBONATE) 17.7 MEQ/L (23-27); HEMOBLOGIN CONTENT 7.6 G/DL (14-18); INSTRUMENT SERIAL # 8087; METHEMOGLOBIN 0.4 % (0-3); O2 CONTENT 9.3 VOL% (18-24); OPERATOR ID 14335; PCO2 (CO2 TENSION) 28 MMHG (35-45); PO2 (O2 TENSION) 57 MMHG (79-93); SAMPLE Arterial; pH 7.42 (7.37-7.43)
[~2016-07-21 12:16] MED LIST: ALLERGY RELIEF; ASAB PO; COREG25 PO; COZAAR100 MG PO; FLOMAX4 PO; K500 PO; LIPITOR40 PO; LOFIB160 PO; LOP50 PO; MONOPRIL HC1 PO; NORV5 PO; PLAVIX PO; PRILO PO; PRILOSEC40 MG PO
[2016-07-21 12:24] LABS: BASOPHILS 0.4 %; BASOPHILS ABSOLUTE 0.01 10/3/uL (0.0-0.16); EOSINOPHILS 1.1 %; EOSINOPHILS ABSOLUTE 0.03 10/3/uL (0.0-0.53); IMMATURE GRANULOCYTES 0.4 %; IMMATURE GRANULOCYTES ABSOLUTE 0.01 10/3/uL (0.0-0.11); LYMPHOCYTES 20.1 %; LYMPHOCYTES ABSOLUTE 0.56 10/3/uL (0.67-4.30); MEAN CORPUS HGB CONC 31.9 g/dL (32.0-36.0); MEAN CORPUSCULAR HEMOGLOB 29.1 pg (26.0-34.0); MEAN CORPUSCULAR VOLUME 91.5 fL (80-100); MEAN PLATELET VOLUME 9.8 fL (9.2-13.0); MONOCYTES 15.4 %; MONOCYTES ABSOLUTE 0.43 10/3/uL (0.21-1.20); NEUTROPHILS 62.6 %; NEUTROPHILS ABSOLUTE 1.75 10/3/uL (2.02-8.40)
[2016-07-21 12:25] LABS: HEMATOCRIT 22.6 % (40.0-51.0); HEMOGLOBIN 7.2 g/dL (13.6-17.8); MANUAL DIFF NO %; PLATELET COUNT 133 10/3/uL (150-400); RBC DISTRIBUTION WIDTH 17.6 % (12.0-16.0); RED CELL COUNT 2.47 10/6/uL (4.7-6.1); WHITE BLOOD CELLS 2.8 10/3/uL (4.5-10.5)
[2016-07-21 12:32] LABS: INTERNATIONAL NORMAL RATI 1.3 UNITS (-)
[2016-07-21 12:33] LABS: PARTIAL THROMBO TIME 36.6 SEC (22.5-37.2)
[2016-07-21 12:49] LABS: B NATRIURETIC PEPTIDE (BNP) 1117.4 PG/ML (< 100.0)
[2016-07-21 12:50] LABS: BUN (BLOOD UREA NITROGEN) 26 MG/DL (6-23); CALCIUM, SERUM 8.1 MG/DL (8.5-10.4); CHEST PAIN PROFILE TAT 0 Hrs 29 Mins; CHLORIDE, SERUM 115 MMOL/L (96-112); CO2 (CARBON DIOXIDE) 20 MMOL/L (24-34); CREATININE 3.11 MG/DL (0.70-1.30); GFR AFRICAN AMERICAN 22 ML/MIN (>=60); GFR NON AFRICAN AMERICAN 19 ML/MIN (>=60); GLUCOSE, SERUM 95 MG/DL (60-99); POTASSIUM, SERUM 4.1 MMOL/L (3.5-5.3); SODIUM, SERUM 145 MMOL/L (135-148); TROPONIN I <0.02 NG/ML (<0.05)
[2016-07-21] MEDS ORDERED: L40 PO (13:51)
[2016-07-21] MEDS ORDERED: LOFIB160 PO (13:51)
[2016-07-21] MEDS ORDERED: KLOR-CON M2020 MEQ PO (13:51)
[2016-07-21] MEDS ORDERED: PLAVIX PO (13:51)
[2016-07-21] MEDS ORDERED: FLOMAX4 PO (13:52)
[2016-07-21] MEDS ORDERED: COREG25 PO (13:52)
[2016-07-21] MEDS ORDERED: PRILOSEC40 MG PO (13:52)
[2016-07-21] MEDS ORDERED: NORV5 PO (13:52)
[2016-07-21] MEDS ORDERED: LIPITOR40 PO (13:53)
[2016-07-21] MEDS ORDERED: HALF81 PO (13:53)
[2016-07-21 17:52] LABS: PROCALCITONIN 0.46 ng/mL (<0.5)
[2016-07-21 17:57] LABS: FOLATE 7.5 NG/ML (>5.2); PHOSPHORUS, SERUM 3.2 MG/DL (2.5-4.5); ULTRASENSITIVE TSH 0.674 MCIU/ML (0.358-3.740)
[2016-07-21 18:13] LABS: HEMATOCRIT 22.5 % (40.0-51.0)
[2016-07-21 19:52] LABS: WBC (NOT ORDERED) (RFLEX) 0 (0-5)
[2016-07-21 20:06] LABS: ASCORBIC ACID (UR NOT ORDER) NEG (NEG); BILIRUBIN, URINE NEGATIVE (NEG); KETONE, URINE NEGATIVE (NEG); LEUKOCYTE ESTERASE(NOT OR NEG (NEG)
[2016-07-21 20:27] LABS: CREATININE, URINE 53.1 MG/DL
[2016-07-21 21:58] LABS: GLYCOHEMOGLOBIN (HbA1c) 4.5 % (4.7-6.1)
[2016-07-22 05:43] LABS: HEMATOCRIT 21.3 % (40.0-51.0); MEAN CORPUS HGB CONC 31.9 g/dL (32.0-36.0); MEAN CORPUSCULAR HEMOGLOB 29.4 pg (26.0-34.0); MEAN CORPUSCULAR VOLUME 92.2 fL (80-100); MEAN PLATELET VOLUME 10.4 fL (9.2-13.0); PLATELET COUNT 121 10/3/uL (150-400); RBC DISTRIBUTION WIDTH 17.3 % (12.0-16.0); RED CELL COUNT 2.31 10/6/uL (4.7-6.1)
[2016-07-22 05:45] LABS: HEMOGLOBIN 6.8 g/dL (13.6-17.8); WHITE BLOOD CELLS 1.8 10/3/uL (4.5-10.5)
[2016-07-22 05:46] LABS: MANUAL DIFF YES %
[2016-07-22 06:00] LABS: CALCIUM, SERUM 8.3 MG/DL (8.5-10.4); CHLORIDE, SERUM 112 MMOL/L (96-112); CO2 (CARBON DIOXIDE) 19 MMOL/L (24-34); CREATININE 3.37 MG/DL (0.70-1.30); GFR AFRICAN AMERICAN 20 ML/MIN (>=60); GFR NON AFRICAN AMERICAN 17 ML/MIN (>=60); POTASSIUM, SERUM 4.3 MMOL/L (3.5-5.3); SODIUM, SERUM 144 MMOL/L (135-148)
[2016-07-22 06:04] LABS: BUN (BLOOD UREA NITROGEN) 31 MG/DL (6-23); GLUCOSE, SERUM 151 MG/DL (60-99)
[2016-07-22 06:06] LABS: ANISOCYTOSIS 1+ (5-10/OIF) (0-5/OIF); BAND NEUTROPHILS 1 %; LYMPHOCYTES 17 %; LYMPHOCYTES ABSOLUTE (CALC) 0.31 10/3/uL (0.67-4.30); NEUTROPHILS ABSOLUTE (CALC) 1.49 10/3/uL (2.02-8.40); PLATELET ESTIMATE SLT DEC (ADEQUATE); SEGMENTED NEUTROPHIL (0) 82 %; TOTAL NUCLEATED CELLS 100
[2016-07-22 10:55] LABS: SMEAR FOR ABNORMAL CELLS SEE PATHOLOGY REPORT
[2016-07-22 14:04] LABS: ALKALINE PHOSPHATASE 74 U/L (45-117); DIRECT BILIRUBIN 0.3 MG/DL (0.0-0.4); INDIRECT BILIRUBIN(NOT ORDER) 0.4 MG/DL (0.1-0.9); SGOT(AST) 18 U/L (5-40); SGPT(ALT) 19 U/L (5-65); TOTAL BILIRUBIN 0.7 MG/DL (0-1.2); TOTAL PROTEIN 6.6 G/DL (6.0-8.5)
[2016-07-22 14:42] LABS: FERRITIN 96 NG/ML (26-388); IRON, SERUM 41 MCG/DL (35-150)
[2016-07-22 14:43] LABS: FOLATE 5.7 NG/ML (>5.2)
[2016-07-22 16:25] LABS: BASOPHILS 0 %; EOSINOPHILS 0 %; HEMOGLOBIN 8.1 g/dL (13.6-17.8); IMMATURE GRANULOCYTES 0.4 %; IMMATURE GRANULOCYTES ABSOLUTE 0.01 10/3/uL (0.0-0.11); LYMPHOCYTES 19.7 %; LYMPHOCYTES ABSOLUTE 0.48 10/3/uL (0.67-4.30); MEAN CORPUS HGB CONC 32.5 g/dL (32.0-36.0); MEAN CORPUSCULAR HEMOGLOB 29.6 pg (26.0-34.0); MEAN CORPUSCULAR VOLUME 90.9 fL (80-100); MEAN PLATELET VOLUME 10.4 fL (9.2-13.0); MONOCYTES 1.6 %; MONOCYTES ABSOLUTE 0.04 10/3/uL (0.21-1.20); NEUTROPHILS 78.3 %; NEUTROPHILS ABSOLUTE 1.91 10/3/uL (2.02-8.40); PLATELET COUNT 138 10/3/uL (150-400); RED CELL COUNT 2.74 10/6/uL (4.7-6.1)
[2016-07-22 16:27] LABS: HEMATOCRIT 24.9 % (40.0-51.0); MANUAL DIFF NO %; WHITE BLOOD CELLS 2.4 10/3/uL (4.5-10.5)
[2016-07-22 16:31] LABS: INTERNATIONAL NORMAL RATI 1.3 UNITS (-); PROTIME (NOT ORD) 15.9 SEC (12.0-14.5)
[2016-07-22 16:33] LABS: FIBRINOGEN 240 MG/DL (230-462)
[2016-07-22 16:35] LABS: D-DIMER QUANTITATIVE 0.59 ug/mLFEU (< 0.50)
[2016-07-22 20:38] LABS: WBC (NOT ORDERED) (RFLEX) 0 (0-5)
[2016-07-22 20:47] LABS: ASCORBIC ACID (UR NOT ORDER) NEG (NEG); BILIRUBIN, URINE NEGATIVE (NEG); KETONE, URINE NEGATIVE (NEG); LEUKOCYTE ESTERASE(NOT OR NEG (NEG)
[2016-07-23 05:28] LABS: BUN (BLOOD UREA NITROGEN) 42 MG/DL (6-23); CALCIUM, SERUM 8.2 MG/DL (8.5-10.4); CHLORIDE, SERUM 110 MMOL/L (96-112); CO2 (CARBON DIOXIDE) 20 MMOL/L (24-34); CREATININE 3.47 MG/DL (0.70-1.30); GFR AFRICAN AMERICAN 19 ML/MIN (>=60); GFR NON AFRICAN AMERICAN 16 ML/MIN (>=60); GLUCOSE, SERUM 141 MG/DL (60-99); PHOSPHORUS, SERUM 4.7 MG/DL (2.5-4.5); POTASSIUM, SERUM 4.1 MMOL/L (3.5-5.3); SODIUM, SERUM 144 MMOL/L (135-148)
[2016-07-23 05:39] LABS: BASOPHILS 0 %; EOSINOPHILS 0 %; HEMATOCRIT 26.4 % (40.0-51.0); HEMOGLOBIN 8.6 g/dL (13.6-17.8); IMMATURE GRANULOCYTES 0.5 %; IMMATURE GRANULOCYTES ABSOLUTE 0.02 10/3/uL (0.0-0.11); LYMPHOCYTES 10.8 %; LYMPHOCYTES ABSOLUTE 0.46 10/3/uL (0.67-4.30); MEAN CORPUS HGB CONC 32.6 g/dL (32.0-36.0); MEAN CORPUSCULAR HEMOGLOB 29.1 pg (26.0-34.0); MEAN CORPUSCULAR VOLUME 89.2 fL (80-100); MEAN PLATELET VOLUME 10.4 fL (9.2-13.0); MONOCYTES 9.9 %; MONOCYTES ABSOLUTE 0.42 10/3/uL (0.21-1.20); NEUTROPHILS 78.8 %; NEUTROPHILS ABSOLUTE 3.36 10/3/uL (2.02-8.40); PLATELET COUNT 132 10/3/uL (150-400); RBC DISTRIBUTION WIDTH 18.2 % (12.0-16.0); RED CELL COUNT 2.96 10/6/uL (4.7-6.1)
[2016-07-23 05:46] LABS: WHITE BLOOD CELLS 4.3 10/3/uL (4.5-10.5)
[2016-07-23 05:47] LABS: MANUAL DIFF NO %
[2016-07-24 04:20] LABS: BASOPHILS 0 %; EOSINOPHILS 0 %; HEMATOCRIT 26.4 % (40.0-51.0); HEMOGLOBIN 8.7 g/dL (13.6-17.8); IMMATURE GRANULOCYTES 0.8 %; IMMATURE GRANULOCYTES ABSOLUTE 0.03 10/3/uL (0.0-0.11); LYMPHOCYTES 13.8 %; LYMPHOCYTES ABSOLUTE 0.51 10/3/uL (0.67-4.30); MEAN PLATELET VOLUME 10.7 fL (9.2-13.0); MONOCYTES 5.7 %; MONOCYTES ABSOLUTE 0.21 10/3/uL (0.21-1.20); NEUTROPHILS 79.7 %; NEUTROPHILS ABSOLUTE 2.94 10/3/uL (2.02-8.40); PLATELET COUNT 135 10/3/uL (150-400); RBC DISTRIBUTION WIDTH 18.4 % (12.0-16.0); WHITE BLOOD CELLS 3.7 10/3/uL (4.5-10.5)
[2016-07-24 04:26] LABS: MANUAL DIFF NO %
[2016-07-24 04:58] LABS: CALCIUM, SERUM 7.9 MG/DL (8.5-10.4); CHLORIDE, SERUM 109 MMOL/L (96-112); CO2 (CARBON DIOXIDE) 22 MMOL/L (24-34); CREATININE 3.57 MG/DL (0.70-1.30); GFR AFRICAN AMERICAN 18 ML/MIN (>=60); GFR NON AFRICAN AMERICAN 16 ML/MIN (>=60); GLUCOSE, SERUM 143 MG/DL (60-99); PHOSPHORUS, SERUM 4.8 MG/DL (2.5-4.5); POTASSIUM, SERUM 4.3 MMOL/L (3.5-5.3); SODIUM, SERUM 142 MMOL/L (135-148)
[2016-07-24 05:01] LABS: BUN (BLOOD UREA NITROGEN) 53 MG/DL (6-23)
[2016-07-25 04:32] LABS: BASOPHILS 0.2 %; BASOPHILS ABSOLUTE 0.01 10/3/uL (0.0-0.16); EOSINOPHILS 0 %; HEMATOCRIT 28.5 % (40.0-51.0); HEMOGLOBIN 9.3 g/dL (13.6-17.8); IMMATURE GRANULOCYTES ABSOLUTE 0.05 10/3/uL (0.0-0.11); LYMPHOCYTES 11.9 %; MEAN CORPUS HGB CONC 32.6 g/dL (32.0-36.0); MEAN CORPUSCULAR HEMOGLOB 28.8 pg (26.0-34.0); MEAN CORPUSCULAR VOLUME 88.2 fL (80-100); MEAN PLATELET VOLUME 10.8 fL (9.2-13.0); MONOCYTES 9.7 %; MONOCYTES ABSOLUTE 0.49 10/3/uL (0.21-1.20); NEUTROPHILS 77.2 %; PLATELET COUNT 157 10/3/uL (150-400); RBC DISTRIBUTION WIDTH 17.8 % (12.0-16.0); RED CELL COUNT 3.23 10/6/uL (4.7-6.1); WHITE BLOOD CELLS 5.1 10/3/uL (4.5-10.5)
[2016-07-25 04:35] LABS: MANUAL DIFF NO %
[2016-07-25 04:41] LABS: ALBUMIN 3.1 G/DL (3.5-5.0); CALCIUM, SERUM 7.6 MG/DL (8.5-10.4); CHLORIDE, SERUM 109 MMOL/L (96-112); CO2 (CARBON DIOXIDE) 22 MMOL/L (24-34); CREATININE 3.95 MG/DL (0.70-1.30); GFR AFRICAN AMERICAN 16 ML/MIN (>=60); GFR NON AFRICAN AMERICAN 14 ML/MIN (>=60); GLUCOSE, SERUM 139 MG/DL (60-99); PHOSPHORUS, SERUM 4.7 MG/DL (2.5-4.5); POTASSIUM, SERUM 4.4 MMOL/L (3.5-5.3); SODIUM, SERUM 142 MMOL/L (135-148)
[2016-07-25 04:42] LABS: BUN (BLOOD UREA NITROGEN) 69 MG/DL (6-23)
[2016-07-26 03:50] LABS: BASOPHILS 0 %; EOSINOPHILS 0 %; HEMATOCRIT 29.1 % (40.0-51.0); HEMOGLOBIN 9.4 g/dL (13.6-17.8); IMMATURE GRANULOCYTES ABSOLUTE 0.04 10/3/uL (0.0-0.11); LYMPHOCYTES ABSOLUTE 0.42 10/3/uL (0.67-4.30); MEAN CORPUS HGB CONC 32.3 g/dL (32.0-36.0); MEAN CORPUSCULAR VOLUME 89.8 fL (80-100); MEAN PLATELET VOLUME 10.6 fL (9.2-13.0); MONOCYTES 10.2 %; MONOCYTES ABSOLUTE 0.39 10/3/uL (0.21-1.20); NEUTROPHILS 77.8 %; NEUTROPHILS ABSOLUTE 2.97 10/3/uL (2.02-8.40); PLATELET COUNT 150 10/3/uL (150-400); RBC DISTRIBUTION WIDTH 17.9 % (12.0-16.0); RED CELL COUNT 3.24 10/6/uL (4.7-6.1); WHITE BLOOD CELLS 3.8 10/3/uL (4.5-10.5)
[2016-07-26 03:51] LABS: MANUAL DIFF NO %
[2016-07-26 03:54] LABS: INTERNATIONAL NORMAL RATI 1.3 UNITS (-); PROTIME (NOT ORD) 16.5 SEC (12.0-14.5)
[2016-07-26 04:11] LABS: CALCIUM, SERUM 7.6 MG/DL (8.5-10.4); CHLORIDE, SERUM 110 MMOL/L (96-112); CO2 (CARBON DIOXIDE) 24 MMOL/L (24-34); CREATININE 3.82 MG/DL (0.70-1.30); GFR AFRICAN AMERICAN 17 ML/MIN (>=60); GFR NON AFRICAN AMERICAN 14 ML/MIN (>=60); POTASSIUM, SERUM 4.8 MMOL/L (3.5-5.3); SODIUM, SERUM 145 MMOL/L (135-148)
[2016-07-26 04:13] LABS: BUN (BLOOD UREA NITROGEN) 76 MG/DL (6-23)
[2016-07-26 04:14] LABS: GLUCOSE, SERUM 117 MG/DL (60-99); PHOSPHORUS, SERUM 6.5 MG/DL (2.5-4.5)
[2016-07-27 05:37] LABS: CALCIUM, SERUM 7.5 MG/DL (8.5-10.4); CHLORIDE, SERUM 108 MMOL/L (96-112); CO2 (CARBON DIOXIDE) 24 MMOL/L (24-34); CREATININE 3.94 MG/DL (0.70-1.30); GFR AFRICAN AMERICAN 16 ML/MIN (>=60); GFR NON AFRICAN AMERICAN 14 ML/MIN (>=60); POTASSIUM, SERUM 4.6 MMOL/L (3.5-5.3); SODIUM, SERUM 142 MMOL/L (135-148)
[2016-07-27 05:38] LABS: BUN (BLOOD UREA NITROGEN) 86 MG/DL (6-23)
[2016-07-27 05:44] LABS: GLUCOSE, SERUM 117 MG/DL (60-99)
[2016-07-27] MEDS ORDERED: FLAG500TAB PO (12:13)
[2016-07-27] MEDS ORDERED: LEVAQUIN750 MG PO (12:16)
[2016-07-27] MEDS ORDERED: COREG12 PO (12:19)
[2016-07-27] MEDS ORDERED: SODBICAR10 PO (12:21)
[2016-07-27] MEDS ORDERED: DEMA20 PO (12:23)
[2016-07-27] MEDS ORDERED: PROAIR HFA INH (12:27)
[2016-07-27] MEDS ORDERED: APRES25 PO (12:28)
[2016-07-27] MEDS ORDERED: COMBIVENT RESPIM4 GM INH (12:30)
[2016-07-27] MEDS ORDERED: CYANO1000T PO (12:31)
== END 2016-07-27 16:08 | disposition home health service (06) | DRG 291 ==
LOC: ER 12:16 → 7NO 13:49
PROVIDERS: Hospitalist; Internal Medicine; Internal Medicine Cardiovascular Disease; Internal Medicine Nephrology; Nurse Practitioner; Registered Nurse; Urology
PROC: 0TJB8ZZ Inspection of Bladder, Via Natural or Artificial Opening Endoscopic (ICD-10-PCS; principal; 2016-07-25 16:00)
DX: I13.0 Hypertensive heart and chronic kidney disease with heart failure and stage 1 through stage 4 chronic kidney disease, or unspecified chronic kidney disease (principal); I50.23 Acute on chronic systolic (congestive) heart failure; J96.01 Acute respiratory failure with hypoxia; G93.40 Encephalopathy, unspecified; D61.818 Other pancytopenia; N18.4 Chronic kidney disease, stage 4 (severe); N13.2 Hydronephrosis with renal and ureteral calculous obstruction; D63.1 Anemia in chronic kidney disease; D64.9 Anemia, unspecified; J44.1 Chronic obstructive pulmonary disease with (acute) exacerbation; I25.10 Atherosclerotic heart disease of native coronary artery without angina pectoris; N18.9 Chronic kidney disease, unspecified; I25.5 Ischemic cardiomyopathy; I73.9 Peripheral vascular disease, unspecified; K21.9 Gastro-esophageal reflux disease without esophagitis; I25.2 Old myocardial infarction; E78.5 Hyperlipidemia, unspecified; E53.8 Deficiency of other specified B group vitamins; E78.00 Pure hypercholesterolemia, unspecified; K44.9 Diaphragmatic hernia without obstruction or gangrene; N40.1 Benign prostatic hyperplasia with lower urinary tract symptoms; K80.20 Calculus of gallbladder without cholecystitis without obstruction; N32.89 Other specified disorders of bladder; Z95.2 Presence of prosthetic heart valve; Z87.891 Personal history of nicotine dependence; Z87.442 Personal history of urinary calculi; Z86.73 Personal history of transient ischemic attack (TIA), and cerebral infarction without residual deficits; Z88.1 Allergy status to other antibiotic agents; Z88.2 Allergy status to sulfonamides; Z88.0 Allergy status to penicillin; Z79.02 Long term (current) use of antithrombotics/antiplatelets
CPT/HCPCS: 36415; 36600; 70450; 71010; 74176; 76705; 78227; 80048; 80069; 80076; 81001; 82140; 82272; 82570; 82607; 82728; 82746; 82805; 82962; 83036; 83540; 83735; 83880; 83935; 84100; 84145; 84300; 84443; 84484; 85014; 85018; 85025; 85379; 85384; 85610; 85730; 86850; 86900; 86901; 86920; 87040; 87449; 93005; 93970; 96374; 97162-GP; 99285; A9270-GY; A9537; C1758; C1769; C8929; C9113; J1956; J2405; J2710; J2805; J2920; J3010; P9016; Q9957; Q9967

== ENCOUNTER 2016-08-17 09:14 | Inpatient (IN) | payer OTHER ==
--- NOTE | ~2016-08-17 | CN ---
Consultation Report [facility] [address] [place]. [address] NAME: KAYY RENTERIA : 42 STATUS : ADM IN [facility]#: [id number] AGE: 76 ADM/REG DATE : 08/17/16 MR#: [id number] REPORT SERV DATE: 08/17/16 DICTATED BY: ARIK HANNA DATE: 08/17/16 REPORT STATUS : Draft TRANSCRIBED BY: MODL DATE: 08/17/16 NEPHROLOGY CONSULT DATE OF CONSULTATION: HISTORY OF PRESENT ILLNESS: Mr. Renteria is a 76-year-old white male, followed by Dr. Rajendra Gaspar in our office for CKD stage 5, recommend initiation of hemodialysis at last visit. 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 Alfaro), and he has agreed not to start hemodialysis. On his way to the urologist's office today, he passed out, was admitted to the hospital, found to have a hemoglobin of 5.7, hematocrit of 17, and has been admitted for blood transfusion and anasarca. He has a longstanding history of congestive heart failure with ejection fraction of 40% with history of ischemic cardiomyopathy, followed by Dr. Alfaro, CKD stage 5 with history of hydronephrosis in the past due to large prostate and nephrolithiasis, chronic hypertension, atherosclerotic cardiovascular disease, diffuse coronary, peripheral vascular disease, both documented, and is status post TAVR procedure in [address] [facility], chronic hyperlipidemia, and gastroesophageal reflux disease, is on home O2 for COPD with history of tobacco use in the past, but none recently. SOCIAL HISTORY: Lives alone, but his daughter is available to help him, Ms. Yoana Kim. No recent tobacco or alcohol. FAMILY HISTORY: Noncontributory. PAST MEDICAL HISTORY: Hypertension in some members. ALLERGIES: HE HAS AN ALLERGY TO SULFA, PENICILLIN, MORPHINE, AND ERYTHROMYCIN BASE. MEDICATIONS: At home are listed as albuterol inhalers, amlodipine, aspirin, atorvastatin, carvedilol, clopidogrel, vitamin D3, fenofibrate, fluticasone/vilanterol, hydralazine, Combivent, Prilosec, Zantac, Flomax, Demadex, and umeclidinium bromide. REVIEW OF SYSTEMS: Weak, shortness of breath, worse, more and more difficulty voiding, more swollen than usual. PHYSICAL EXAMINATION: VITAL SIGNS: Blood pressure 107/56, heart rate of 78, respirations 28 on 2 L by nasal cannula, 97% saturated, respirations 18 to 20, afebrile. GENERAL: Alert, cooperative, dyspneic on O2 with HEENT examination pursed lip breathing at times, but otherwise unremarkable. LUNGS: Expiratory wheezing with prolonged expiratory phase. CARDIOVASCULAR: Without rub. ABDOMEN: Distended, but nontender and may be there is some ascites. EXTREMITIES: 3+ pitting edema bilaterally. Consultation Report [facility] [address] [facility] [place]. [address] NAME: KAYY RENTERIA : 42 STATUS : ADM IN [facility]#: [id number] AGE: 76 ADM/REG DATE : 08/17/16 MR#: [id number] REPORT SERV DATE: 08/17/16 DICTATED BY: ARIK HANNA DATE: 08/17/16 REPORT STATUS : Draft TRANSCRIBED BY: MODL DATE: 08/17/16 NEUROLOGICAL: Nonfocal neurological exam, but did not ambulate the patient as he passed out earlier today by ambulating. LABORATORY DATA: Shows sodium 142, potassium 4.1, chloride 110, CO2 of 16, BUN of 92, creatinine 10.6, blood sugar 140, calcium 6.7, magnesium 1.9. Vitamin D deficiency of 156. Troponin 0.02. White count of 3.9, hemoglobin 5.7, hematocrit 17.6, platelet count 195,000. INR 1.4. EKG shows sinus rhythm, first-degree AV block, inferior infarct, age undetermined. ASSESSMENT: 1. Chronic kidney disease stage 5, needs to start dialysis. I have discussed dialysis with him and his daughter, Yoana Kim and they have agreed to dialysis. I have called Inter[facility], they were agreeable to place a catheter in him within the hour and will keep him n.p.o. and start dialysis today. 2. Congestive heart failure, ischemic. Dr. Alfaro follows. Ejection fraction at last check was 40% to 45%. Troponins negative today. 3. Anasarca secondary to congestive heart failure and worsening kidney failure with 3+ edema and pulmonary edema. We will initiate hemodialysis for ultrafiltration purposes. I do not think he will respond well to diuretics at this point. 4. Anemia, probably multifactorial due to chronic kidney disease, diet, B12 deficiency, and chronic illness, need to rule out GI bleed. 5. Hypertension. 6. Chronic obstructive pulmonary disease. 7. See past medical history. PLAN: Admitted to the hospitalist. He is getting packed red blood cells currently with diuretics, but I believe he will need dialysis and now he is agreeable to do so. We have planned a line placement by [facility] today and initiation of hemodialysis. Thank you for the consultation. LIDIA/ISABELLA Arik Hanna M.D. / [id number] CC: Riki Avery M.D.
--- NOTE | ~2016-08-17 | IDS ---
Interim Discharge Summary [facility] [address] [place]. [address] NAME: KAYY ERAZO : 42 STATUS : ADM IN [facility]#: [id number] AGE: 76 ADM/REG DATE : 08/17/16 MR#: [id number] REPORT SERV DATE: 08/21/16 DICTATED BY: ISABELLA BAILEY DATE: 08/21/16 REPORT STATUS : Draft TRANSCRIBED BY: MODL DATE: 08/21/16 ADMISSION DATE: 08/17/2016 DISCHARGE DATE: 08/21/2016 CURRENT MEDICAL PROBLEMS: 1. End-stage renal disease, currently on hemodialysis, tolerates hemodialysis. 2. Vascular Surgery consulted for fistula placement. 3. Anasarca resolved once dialysis was started. 4. Anemia secondary to chronic kidney disease, status post blood transfusion. Currently stable hemoglobin and hematocrit. 5. History of transaortic valve replacement in the past, stable. 6. Severe vitamin B12 deficiency, on replacement, needs to have vitamin B12 prescription on discharge. 7. History of peripheral arterial disease. CONSULTANTS: Pipe Fitter Maintenance, Dr. Arik Guerra. Vascular, Dr. Cecil Jane. HOSPITAL COURSE: 1. Briefly, the patient was admitted by Dr. Perez on 08/17/2016. He was started on hemodialysis. Once he was admitted, his anasarca resolved. He is doing much better, but overall, he now requires also fistula placement for chronic hemodialysis. 2. He was found to have vitamin B12 deficiency and he is on replacement, he needs vitamin B12 prescription on discharge. 3. History of transaortic valve replacement, stable. 4. History of peripheral arterial disease, needs to follow up outpatient. 5. Also Dr. Perez on admission consulted Palliative Care to explain the patient his prognosis. 6. The patient also had mild nose bleeding yesterday at night, not it has resolved. 7. The patient is currently stable. My partner Dr. Gudino will see him starting tomorrow morning. Once this fistula is placed, he needs to be cleared by pumping station engineer and Vascular Surgery to be discharged. MG/MODL Isabella Bailey M.D. / [id number] CC: Riki Avery M.D. Alexander Stratienko, M.D. [facility] Interim Discharge Summary [address] [place]. [address] NAME: KAYY ERAZO : 42 STATUS : ADM IN PAT#: [id number] AGE: 76 ADM/REG DATE : 08/17/16 MR#: [id number] REPORT SERV DATE: 08/21/16 DICTATED BY: ISABELLA BAILEY DATE: 08/21/16 REPORT STATUS : Draft TRANSCRIBED BY: ZEYADL DATE: 08/21/16 Rajendra Gaspar M.D.
--- NOTE | ~2016-08-17 | HP ---
History And Physical [place] [id number] [facility] [place]. [address] NAME: KAYY ERAZO : 42 STATUS : ADM IN PAT#: [id number] AGE: 76 ADM/REG DATE : 08/17/16 MR#: [id number] REPORT SERV DATE: 08/17/16 DICTATED BY: CAT GARCIA DATE: 08/17/16 REPORT STATUS : Draft TRANSCRIBED BY: MODL DATE: 08/17/16 DATE OF ADMISSION: 08/17/2016 REASON FOR ADMISSION: Acute renal failure. Anemia. Claudication. HISTORY: This is a 76-year-old white male, who was discharged on 07/28 after a course of acute on chronic congestive heart failure. He has an ejection fraction of 45%. His renal function has deteriorated now with a creatinine of 10.3 with an estimated GFR of 5 mL a minute. He has undergone a TAVR, aortic valve replacement because of his poor condition, requiring treatment of his aortic stenosis. He has a large gallstone and had been awaiting for Dr. Jerry to take this out when he was better. Dr. Gaspar saw him last week and they discussed dialysis. Dr. Alfaro has given his approval for dialysis in spite of his ejection fraction of 45% estimated at the last visit. He had increasing shortness of breath today. He came to the emergency room after he passed out, curled in the car. He had to stop [address] to the car door from the house. He was going to go see Dr. Tanner today. He was here at the [facility] yesterday and had an arterial ultrasound of his lower extremity showing significant peripheral vascular disease. He had attempted angioplasty by the radiologist at [facility] within the last decade in the past. In the emergency room, he was evaluated by Dr. Oleary and found his hematocrit to be 17.5, dyspneic with exertion. His bicarbonate was 16 on the BMP and he was thought to be in acute renal failure with a creatinine up to 10.6. PAST MEDICAL HISTORY: He was evaluated by Dr. Clark for pancytopenia during the prior hospitalization but has improved some since then. Dr. Tanner and Dr. Marie have done a retrograde pyelography previously because of left hydronephrosis and nephrolithiasis. Dr. Jerry had seen him for a large gallstone and was considering cholecystectomy once the patient improved clinically. He has now deteriorated and will likely require dialysis for any kind of improvement though certainly is at risk for within the next year with ejection fraction of 45%. MEDICATIONS: His home medications include the following: Albuterol 1 to 2 puffs every four hours as needed for wheezing; amlodipine 5 mg p.o. every morning; aspirin 81 mg p.o. daily; atorvastatin 40 mg p.o. daily; carvedilol 12.5 mg p.o. b.i.d.; Plavix 75 mg p.o. every day; vitamin D 59855 units p.o. weekly; fenofibrate 160 mg p.o. q.a.m.; Breo Ellipta 100/25 one puff daily; hydralazine 25 mg p.o. q.8 hours; Combivent inhaler 1 puff twice a day; omeprazole 40 mg p.o. b.i.d.; ranitidine 300 mg p.o. b.i.d.; Flomax 0.4 mg p.o. q.a.m.; Demadex 20 mg p.o. b.i.d.; and Incruse Ellipta 1 puff daily. ALLERGIES: INCLUDE THE FOLLOWING: PENICILLIN, SULFONAMIDE, MORPHINE, ERYTHROMYCIN, AND STREPTOMYCIN. History And Physical [address] [address] NAME: KAYY ERAZO : 42 STATUS : ADM IN [facility]#: [id number] AGE: 76 ADM/REG DATE : 08/17/16 MR#: [id number] REPORT SERV DATE: 08/17/16 DICTATED BY: CAT GARCIA DATE: 08/17/16 REPORT STATUS : Draft TRANSCRIBED BY: MODL DATE: 08/17/16 SOCIAL HISTORY: The patient lives alone in the [place] in the [facility] [place] where he has lived for the last 30 years. He has been twice. He has estranged children who live in [place], he has not seen 20 years. His stepdaughter lives in [place] on [address] [address] [facility] and takes him where he needs to go but does not live with him nor care for him. His ex- has remarried with no chance of reuniting them. He does not attend [employer]. He worked in the [employer] in the past. His favorite job was at [employer] in [place]. He denies any alcohol use. He did have a 45 pack-year history of smoking. Smoking 2 to 3 packs a day while he was working. FAMILY HISTORY: He had one sister who of bone marrow cancer, assumed to be multiple myeloma. No other diseases known to run in the family. Hypertension in 1 parent otherwise unknown. REVIEW OF SYSTEMS: He denies any chest pain. He does have shortness of breath, dyspnea on exertion, leg pain at rest now and with walking. No shoulder pain or arm pain. He does have orthopnea, increasing swelling, and anasarca. He had a TAVR done in 2014. At that time, he was a poor surgical risk. When discussing end-of-life issues, the patient says he would like to be resuscitated for two or three times but if it does not work, to just let him go. He has had no melena, hematemesis, hemoptysis, hematuria, urinary retention, fever, chills, night sweats, fits, seizures, or convulsions. The remainder of the review of systems is negative. PHYSICAL EXAMINATION: VITAL SIGNS: Blood pressure is 155/70 with a heart rate of 75, respiratory rate 18, afebrile. HEENT: EOMI. Sclerae clear. Conjunctivae pale. He does have scleral edema. NECK: No bruit without any JVD. CHEST: Clear. HEART: Regular S1, S2 with a 1/6 systolic murmur along the left sternal border. ABDOMEN: Distended, protuberant. No hepatosplenomegaly is noted. Bowel sounds are positive. EXTREMITIES: Have 4+ pitting edema in the lower extremities with some ecchymosis. NEUROLOGIC: DTRs were attempted but not elicitable. In the knees and ankles, his improvement rn is equal and symmetric. Coordination appears to be intact. [id number] was intact. He has no tremor. There is no dysmetria. He does have some respiratory distress. LYMPHATICS: There is no adenopathy palpable. SKIN: With few ecchymoses and a henley-sallow appearance. LABORATORY DATA: Type and screen on the blood showed A positive blood type with negative antibody screen. The chest x-ray showed low lung volumes with basilar atelectasis. He has had TAVR. White count 3.9, hemoglobin 5.7, hematocrit 17.9, and platelets were 195. The INR was 1.4. His creatinine was 10.6. Estimated glucose 140, calcium 6.7, and magnesium 1.9. The iron, ferritin, folic acid, B12 are pending. Troponin was 0.02. Sodium 142, History And Physical [facility] [address] [place]. [address] NAME: KAYY ERAZO : 42 STATUS : ADM IN PAT#: [id number] AGE: 76 ADM/REG DATE : 08/17/16 MR#: [id number] REPORT SERV DATE: 08/17/16 DICTATED BY: CAT GARCIA DATE: 08/17/16 REPORT STATUS : Draft TRANSCRIBED BY: ISABELLA DATE: 08/17/16 potassium 4.1, CO2 was 16 with a BUN of 92. Ultrasound of the lower extremities showed significant at least mild peripheral vascular disease on the right, moderate on the left with diminished brachial indices distally. ASSESSMENT: 1. Anemia of chronic disease. Dr. Clark saw him previously and put him on B12 and iron, however, felt that his low blood counts were due to a problem with his chronic illnesses, most likely the chronic kidney disease. 2. Chronic kidney disease stage 5. The patient will have to go to dialysis. We will consult Dr. Gaspar. 3. Anasarca. May be difficult to mobilize the fluid without hemodialysis but we will try Lasix after each. 4. Hypertension. 5. ASCVD with CHF from ischemic cardiomyopathy. Ejection fraction of 45%. 6. History of transcatheter aortic valve replacement in 2015 because of poor physical condition precluding open surgical technique. 7. Peripheral vascular disease. Ultrasound. 8. Cerebrovascular disease. We will check ultrasound of the carotids as an outpatient as this is planned. PLAN: We will transfuse 2 units now, repeat if necessary. Follow each unit with Lasix. We will consult Dr. Gaspar. We will likely have to do urgent acute dialysis. I discussed end of-life issues with him. He says he would like to have resuscitation attempted 2-to-3 times but if that is unsuccessful, allow natural to proceed. I will plan to have Palliative Care see the patient during the hospitalization to help with prognosis. With ejection fraction of 45%, peripheral vascular disease, and history of the aortic valvular replacement along with the gallstone that needs surgery, his 1-year mortality may be as high as 50%. We will ask palliative care to help quantitate and offer appropriate solutions. DB/MODL Cat Garcia M.D. / [id number] CC: Riki Catalan M.D. Oliver Benton III, M.D. Alexander Stratienko, M.D. Stuart G Ginther, M.D. Edward Arrowsmith, M.D. Robert Barnett III, M.D.
--- NOTE | ~2016-08-17 | OP ---
Record Of Operation [facility] [address] [place]. [address] NAME: KAYY ERAZO : 42 STATUS : ADM IN PAT#: [id number] AGE: 76 ADM/REG DATE : 08/17/16 MR#: [id number] REPORT SERV DATE: 08/22/16 DICTATED BY: CECIL JANE DATE: 08/22/16 REPORT STATUS : Draft TRANSCRIBED BY: MODPop DATE: 08/22/16 DATE OF PROCEDURE: 08/22/2016 PREOPERATIVE DIAGNOSIS: End-stage renal disease. POSTOPERATIVE DIAGNOSIS: End-stage renal disease. PROCEDURE: Left radiocephalic arteriovenous fistula. SURGEON: Cecil Jane M.D. WASTE RECLAIMER: Erickson Kramer. ANESTHESIA: Block and local. INDICATIONS: The patient is a 76-year-old gentleman, who has end-stage renal disease. He had a PermCath placed and now needs a longer term dialysis access. Risks, benefits, and alternatives were discussed. He wished to proceed. DESCRIPTION OF PROCEDURE: After informed consent was obtained, the patient was taken to the operating room and placed in the supine position on the operating table. A block had previously been administered. The patient's left upper extremity was prepped and draped in usual sterile fashion. I began with an ultrasound examination of the left upper extremity and found that the left cephalic vein in the forearm was of good size for a fistula. It measured about 4 mm in diameter, but actually coursed along the posterior aspect of the forearm for its most distal portion. The radial artery was about 4 mm in size. A longitudinal skin incision was made at the level of the wrist. I dissected out the radial artery. I tried to approach the cephalic vein from the same incision but was unsuccessful. Thus, I made a longitudinal skin incision along the cephalic vein. I ligated and divided it distally. I transected it. I flushed it and made sure that it dilated well. I marked the vein for orientation. I tunneled the vein between the two incisions. I systemically heparinized. I controlled the radial artery. I created a longitudinal arteriotomy, onto which I sewed the spatulated end of the cephalic vein. I flushed of air and debris before tying down the sutures. I then achieved hemostasis. I washed out the wound, confirmed that the fistula was not kinked, and closed the wound in layers. The patient tolerated the procedure well without any intraprocedural complications noted. MELIZA/ISABELLA Cecil Jane M.D. / [id number] Record Of [address] [place]. [address] NAME: KAYY ERAZO : 42 STATUS : ADM IN [facility]#: [id number] AGE: 76 ADM/REG DATE : 08/17/16 MR#: [id number] REPORT SERV DATE: 08/22/16 DICTATED BY: CECIL JANE DATE: 08/22/16 REPORT STATUS : Draft TRANSCRIBED BY: ISABELLA DATE: 08/22/16 CC: Riki Epsana M.D.
--- NOTE | ~2016-08-17 | DS ---
Discharge Summary [facility] [address] [facility] [place]. [address] NAME: KAYY ERAZO : 42 STATUS : ADM IN [facility]#: [id number] AGE: 76 ADM/REG DATE : 08/17/16 MR#: [id number] REPORT SERV DATE: 08/29/16 DICTATED BY: JOEL JENNINGS DATE: 08/28/16 REPORT STATUS : Draft TRANSCRIBED BY: MODL DATE: 08/28/16 ADMISSION DATE: 08/17/2016 DISCHARGE DATE: VASCULAR SURGEON: Cecil Jane M.D. RENAL: Arik Guerra M.D. CARDIOLOGY: Beny Alfaro M.D. FINAL DIAGNOSES: 1. End-stage renal disease. 2. Fluid overload, improved. 3. Nonsustained ventricular tachycardia, asymptomatic. 4. History of transcatheter aortic valve replacement. 5. Chronic systolic congestive heart failure. 6. Hypertension. 7. Coronary artery disease. 8. Peripheral artery disease, status post left arteriovenous fistula. 9. Anemia of chronic disease, status post 5 units packed red blood cells. 10.B12 deficiency. 11.Chronic obstructive pulmonary disease. DIAGNOSTIC EXAMS: Myocardial perfusion showing no electrocardiographic changes diagnostic of ischemia were noted. Imaging demonstrated no ischemia. Post infusion LVEF 44%. Echocardiogram showing posterobasal akinesis. Mild reduction in global left ventricular systolic function. Moderate left ventricular diastolic dysfunction. Mild biatrial enlargement. Right ventricular enlargement. Mitral annular calcification and a normally functioning aortic bioprosthetic valve. HOSPITAL COURSE: Please refer to the H and P done by Dr. Perez dated on 08/17/2016 and the interim discharge summary done by Dr. Humphrey on 08/21/2016. Since I took care of this patient, the patient is undergoing hemodialysis and was already transfused blood. His H and H were followed and it was stable and his fluid overload continues to improve with dialysis. The patient got a Vascular Surgery consult where in a left AV fistula was placed. The patient tolerated the procedure well. Meanwhile, he had several episodes of nonsustained ventricular tachycardia in which he was asymptomatic. We got Cardiology involved. They did the above tests, and the patient was then cleared for discharge. So, we are waiting for approval for rehab and once we get that the patient will be discharged there. He will follow up with the rehab doctor, then follow up with his PCP, Dr. Venancio Flores, and follow up with Cardiology Dr. Alfaro in two weeks and he will have outpatient hemodialysis as scheduled. If the patient does not go today, he will be followed up by my partner starting tomorrow morning. Discharge Summary [place] [address] [place]. [id number] NAME: KAYY ERAZO : 42 STATUS : ADM IN PAT#: [id number] AGE: 76 ADM/REG DATE : 08/17/16 MR#: [id number] REPORT SERV DATE: 08/29/16 DICTATED BY: JOEL JENNINGS DATE: 08/28/16 REPORT STATUS : Draft TRANSCRIBED BY: ISABELLA DATE: 08/28/16 MARLON/ISABELLA Joel Jennings M.D. / [id number] CC: Riki Espana M.D.
--- NOTE | ~2016-08-17 | CN ---
Consultation Report [facility] [address] [place]. [address] NAME: KAYY ERAZO : 42 STATUS : ADM IN [facility]#: [id number] AGE: 76 ADM/REG DATE : 08/17/16 MR#: [id number] REPORT SERV DATE: 08/21/16 DICTATED BY: CECIL JANE DATE: 08/20/16 REPORT STATUS : Draft TRANSCRIBED BY: ISABELLA DATE: 08/20/16 CONSULTATION REPORT DATE OF CONSULTATION: 08/20/2016 REASON FOR CONSULTATION: Evaluation for dialysis access. BRIEF HISTORY: The patient is a 76-year-old gentleman with a past medical history significant for chronic kidney disease, stage V; kidney stones; ischemic cardiomyopathy; coronary artery disease; hypertension; hyperlipidemia; COPD, on home oxygen; and aortic valvular disease who was admitted to the hospital with anemia who presented with syncope. In his workup, his renal function was noted to worsen. He had a PermCath placed. He has been started on dialysis. He now needs longer-term dialysis access, and we were consulted for evaluation and treatment. The patient denies any complaints now. PAST MEDICAL HISTORY: As above. PAST SURGICAL HISTORY: Includes a kidney stone removal. He has also had a transcatheter aortic valve replacement. SOCIAL HISTORY: He has a remote history of tobacco abuse. He denies any alcohol or drug use. His daughter is available to help him around the house, but he lives alone. FAMILY HISTORY: Noncontributory except for some hypertension. ALLERGIES: SULFA, PENICILLIN, MORPHINE, AND ERYTHROMYCIN. MEDICATIONS: Documented on the chart and were reviewed. REVIEW OF SYSTEMS: A complete review of systems was performed and is negative with the exception of the aforementioned findings. PHYSICAL EXAMINATION: VITAL SIGNS: Documented on the chart and were reviewed. GENERAL: The patient is awake, alert, oriented, and in no apparent distress. HEENT/NECK: His head and neck examination is benign without any carotid bruits. HEART: Regular rate rhythm. LUNGS: Clear. ABDOMEN: Soft, nontender, and nondistended with a nonaneurysmal aorta. EXTREMITIES: He has a normal complement of upper extremity pulses without any significant edema or ischemic ulcerations. He has palpable femoral pulses, but I do not appreciate more distal pulses. He does have some lower extremity edema. He has no ischemic ulcerations. NEUROLOGIC: Grossly nonfocal. Consultation Report [facility] [address] [id number] NAME: KAYY ERAZO : 42 STATUS : ADM IN PAT#: [id number] AGE: 76 ADM/REG DATE : 08/17/16 MR#: [id number] REPORT SERV DATE: 08/21/16 DICTATED BY: CECIL JANE DATE: 08/20/16 REPORT STATUS : Draft TRANSCRIBED BY: MODL DATE: 08/20/16 MUSCULOSKELETAL: Otherwise, benign. LABORATORY DATA: His laboratory investigations are consistent with his renal failure. ASSESSMENT AND PLAN: It looks like this gentleman has end-stage renal disease. I talked to him about the risks, benefits, and alternatives of AV fistulas and AV grafts along with catheter-based dialysis. As he is right-hand dominant and has normal Elan's tests, I would plan on performing a left upper extremity access. I have asked that they not place any new IVs or get blood draws from his left upper extremity. They can continue to use his left upper extremity IV for now, but it will need to be discontinued tomorrow if we do use his left upper extremity for access. I have asked that they use his right hand to draw blood and to place new IVs. I would like for them to avoid the antecubital fossa if possible. The patient seems agreeable to this. I will go ahead and order the vein mapping. TRAINING FACILITATOR/ISABELLA Cecil Jane M.D. / [id number] CC: Riki Avery M.D.
[~2016-08-17 09:14] MED LIST changes: +APRES25 PO; +COMBIVENT RESPIM4 GM INH; +COREG12 PO; +CYANO1000T PO; +DEMA20 PO; +FLAG500TAB PO; +HALF81 PO; +KLOR-CON M2020 MEQ PO; +L40 PO; +LEVAQUIN750 MG PO; +PROAIR HFA INH; +SODBICAR10 PO
[2016-08-17 09:17] LABS: BASOPHILS 0 %; EOSINOPHILS 2.8 %; EOSINOPHILS ABSOLUTE 0.11 10/3/uL (0.0-0.53); ER CBC TAT 0 Hrs 03 Mins; LYMPHOCYTES 23.1 %; MEAN CORPUS HGB CONC 32.4 g/dL (32.0-36.0); MEAN CORPUSCULAR HEMOGLOB 28.6 pg (26.0-34.0); MEAN CORPUSCULAR VOLUME 88.4 fL (80-100); MEAN PLATELET VOLUME 9.2 fL (9.2-13.0); MONOCYTES 12.1 %; MONOCYTES ABSOLUTE 0.47 10/3/uL (0.21-1.20); NEUTROPHILS ABSOLUTE 2.38 10/3/uL (2.02-8.40); PLATELET COUNT 195 10/3/uL (150-400); WHITE BLOOD CELLS 3.9 10/3/uL (4.5-10.5)
[2016-08-17 09:18] LABS: RED CELL COUNT 1.99 10/6/uL (4.7-6.1)
[2016-08-17 09:19] LABS: HEMATOCRIT 17.6 % (40.0-51.0); HEMOGLOBIN 5.7 g/dL (13.6-17.8)
[2016-08-17 09:20] LABS: IMMATURE GRANULOCYTES ABSOLUTE 0.04 10/3/uL (0.0-0.11); MANUAL DIFF NO %
[2016-08-17 09:28] LABS: INTERNATIONAL NORMAL RATI 1.4 UNITS (-); PARTIAL THROMBO TIME 32.4 SEC (22.5-37.2); PROTIME (NOT ORD) 17.3 SEC (12.0-14.5)
[2016-08-17 09:32] LABS: BUN (BLOOD UREA NITROGEN) 92 MG/DL (6-23); CALCIUM, SERUM 6.7 MG/DL (8.5-10.4); CHEST PAIN PROFILE TAT 0 Hrs 18 Mins; CHLORIDE, SERUM 110 MMOL/L (96-112); CO2 (CARBON DIOXIDE) 16 MMOL/L (24-34); GFR AFRICAN AMERICAN 5 ML/MIN (>=60); GFR NON AFRICAN AMERICAN 4 ML/MIN (>=60); GLUCOSE, SERUM 140 MG/DL (60-99); POTASSIUM, SERUM 4.1 MMOL/L (3.5-5.3); SODIUM, SERUM 142 MMOL/L (135-148); TROPONIN I 0.02 NG/ML (<0.05)
[2016-08-17 09:45] LABS: ANISOCYTOSIS 1+ (5-10/OIF) (0-5/OIF); BASOPHILS 1 %; BASOPHILS ABSOLUTE (CALC) 0.04 10/3/uL (0.0-0.16); EOSINOPHILS 4 %; EOSINOPHILS ABSOLUTE (CALC) 0.16 10/3/uL (0.0-0.53); ER DIFF TAT 0 Hrs 31 Mins; LYMPHOCYTES 18 %; MONOCYTES 16 %; MONOCYTES ABSOLUTE (CALC) 0.62 10/3/uL (0.21-1.20); NEUTROPHILS ABSOLUTE (CALC) 2.38 10/3/uL (2.02-8.40); PLATELET ESTIMATE ADQ (ADEQUATE); SEGMENTED NEUTROPHIL (0) 61 %; TOTAL NUCLEATED CELLS 100
[2016-08-17] MEDS ORDERED: VENTOLIN HFA INH (09:47)
[2016-08-17] MEDS ORDERED: LIPITOR40 PO (09:48)
[2016-08-17] MEDS ORDERED: NORV5 PO (09:48)
[2016-08-17] MEDS ORDERED: ASAB PO (09:48)
[2016-08-17] MEDS ORDERED: COREG12 PO (09:49)
[2016-08-17] MEDS ORDERED: PLAVIX PO (09:49)
[2016-08-17] MEDS ORDERED: INCRUSE ELLI62.5 MCG INH (09:49)
[2016-08-17] MEDS ORDERED: BREO ELLIPTA INH (09:50)
[2016-08-17] MEDS ORDERED: LOFIB160 PO (09:50)
[2016-08-17] MEDS ORDERED: APRES25 PO (09:51)
[2016-08-17] MEDS ORDERED: COMBIVENT RESPIM4 GM INH (09:51)
[2016-08-17] MEDS ORDERED: PRILOSEC40 MG PO (09:52)
[2016-08-17] MEDS ORDERED: FLOMAX4 PO (09:52)
[2016-08-17] MEDS ORDERED: DEMA20 PO (09:52)
[2016-08-17] MEDS ORDERED: ZANTAC300 MG PO (09:53)
[2016-08-17] MEDS ORDERED: VITD PO (09:53)
[2016-08-17 12:03] LABS: FERRITIN 140 NG/ML (26-388); IRON, SERUM 66 MCG/DL (35-150)
[2016-08-17 12:04] LABS: FOLATE 5.5 NG/ML (>5.2)
[2016-08-18 04:48] LABS: BASOPHILS 0.2 %; BASOPHILS ABSOLUTE 0.01 10/3/uL (0.0-0.16); EOSINOPHILS 2.1 %; EOSINOPHILS ABSOLUTE 0.09 10/3/uL (0.0-0.53); IMMATURE GRANULOCYTES 0.9 %; IMMATURE GRANULOCYTES ABSOLUTE 0.04 10/3/uL (0.0-0.11); LYMPHOCYTES ABSOLUTE 0.69 10/3/uL (0.67-4.30); MEAN CORPUS HGB CONC 33.3 g/dL (32.0-36.0); MEAN CORPUSCULAR HEMOGLOB 27.6 pg (26.0-34.0); MEAN PLATELET VOLUME 10.1 fL (9.2-13.0); MONOCYTES 15.7 %; MONOCYTES ABSOLUTE 0.68 10/3/uL (0.21-1.20); NEUTROPHILS 65.1 %; NEUTROPHILS ABSOLUTE 2.81 10/3/uL (2.02-8.40); PLATELET COUNT 191 10/3/uL (150-400); RBC DISTRIBUTION WIDTH 19.4 % (12.0-16.0); WHITE BLOOD CELLS 4.3 10/3/uL (4.5-10.5)
[2016-08-18 04:53] LABS: HEMATOCRIT 21.3 % (40.0-51.0); HEMOGLOBIN 7.1 g/dL (13.6-17.8); MANUAL DIFF NO %; MEAN CORPUSCULAR VOLUME 82.9 fL (80-100); RED CELL COUNT 2.57 10/6/uL (4.7-6.1)
[2016-08-18 04:58] LABS: ALBUMIN 2.8 G/DL (3.5-5.0); BUN (BLOOD UREA NITROGEN) 55 MG/DL (6-23); CHLORIDE, SERUM 107 MMOL/L (96-112); CO2 (CARBON DIOXIDE) 22 MMOL/L (24-34); CREATININE 6.85 MG/DL (0.70-1.30); GFR AFRICAN AMERICAN 8 ML/MIN (>=60); GFR NON AFRICAN AMERICAN 7 ML/MIN (>=60); POTASSIUM, SERUM 3.5 MMOL/L (3.5-5.3); SODIUM, SERUM 141 MMOL/L (135-148)
[2016-08-18 04:59] LABS: GLUCOSE, SERUM 88 MG/DL (60-99); PHOSPHORUS, SERUM 4.6 MG/DL (2.5-4.5)
[2016-08-18 10:53] LABS: HEPATITIS C ANTIBODY NON-REACTIVE (NON-REACT)
[2016-08-18 11:38] LABS: HEPATITIS B SURFACE ANTIGEN NON-REACTIVE (NON-REACT)
[2016-08-18 12:06] LABS: HEPATITIS B CORE AB IGM NON-REACTIVE (NON-REAC); HIV COMBO NON-REACTIVE (NON REAC)
[2016-08-18 12:07] LABS: HEP A ANTIBODY IGM NON-REACTIVE (NON-REACT)
[2016-08-19 06:48] LABS: BASOPHILS 0.2 %; BASOPHILS ABSOLUTE 0.01 10/3/uL (0.0-0.16); EOSINOPHILS 2.4 %; EOSINOPHILS ABSOLUTE 0.11 10/3/uL (0.0-0.53); IMMATURE GRANULOCYTES 0.7 %; IMMATURE GRANULOCYTES ABSOLUTE 0.03 10/3/uL (0.0-0.11); LYMPHOCYTES 17.6 %; LYMPHOCYTES ABSOLUTE 0.81 10/3/uL (0.67-4.30); MEAN CORPUS HGB CONC 33.7 g/dL (32.0-36.0); MEAN CORPUSCULAR HEMOGLOB 27.9 pg (26.0-34.0); MEAN CORPUSCULAR VOLUME 82.9 fL (80-100); MEAN PLATELET VOLUME 9.9 fL (9.2-13.0); MONOCYTES 17.6 %; MONOCYTES ABSOLUTE 0.81 10/3/uL (0.21-1.20); NEUTROPHILS 61.5 %; NEUTROPHILS ABSOLUTE 2.82 10/3/uL (2.02-8.40); PLATELET COUNT 178 10/3/uL (150-400); RBC DISTRIBUTION WIDTH 19.4 % (12.0-16.0); RED CELL COUNT 2.51 10/6/uL (4.7-6.1); WHITE BLOOD CELLS 4.6 10/3/uL (4.5-10.5)
[2016-08-19 06:52] LABS: HEMATOCRIT 20.8 % (40.0-51.0); MANUAL DIFF NO %
[2016-08-19 07:07] LABS: ALBUMIN 2.7 G/DL (3.5-5.0); CALCIUM, SERUM 7.1 MG/DL (8.5-10.4); CHLORIDE, SERUM 108 MMOL/L (96-112); CO2 (CARBON DIOXIDE) 22 MMOL/L (24-34); GLUCOSE, SERUM 99 MG/DL (60-99); POTASSIUM, SERUM 3.7 MMOL/L (3.5-5.3); SODIUM, SERUM 141 MMOL/L (135-148)
[2016-08-19 07:12] LABS: BUN (BLOOD UREA NITROGEN) 34 MG/DL (6-23); CREATININE 5.18 MG/DL (0.70-1.30); GFR AFRICAN AMERICAN 12 ML/MIN (>=60); GFR NON AFRICAN AMERICAN 10 ML/MIN (>=60); PHOSPHORUS, SERUM 3.3 MG/DL (2.5-4.5)
[2016-08-20 07:14] LABS: HEMATOCRIT 27.8 % (40.0-51.0); HEMOGLOBIN 9.4 g/dL (13.6-17.8)
[2016-08-20 07:20] LABS: CALCIUM, SERUM 7.4 MG/DL (8.5-10.4); CHLORIDE, SERUM 110 MMOL/L (96-112); CO2 (CARBON DIOXIDE) 23 MMOL/L (24-34); GFR AFRICAN AMERICAN 15 ML/MIN (>=60); GFR NON AFRICAN AMERICAN 13 ML/MIN (>=60); GLUCOSE, SERUM 106 MG/DL (60-99); POTASSIUM, SERUM 4.2 MMOL/L (3.5-5.3); SODIUM, SERUM 142 MMOL/L (135-148)
[2016-08-20 07:24] LABS: BUN (BLOOD UREA NITROGEN) 26 MG/DL (6-23)
[2016-08-21 13:31] LABS: BASOPHILS 0.2 %; BASOPHILS ABSOLUTE 0.01 10/3/uL (0.0-0.16); EOSINOPHILS 2.2 %; EOSINOPHILS ABSOLUTE 0.13 10/3/uL (0.0-0.53); HEMATOCRIT 26.8 % (40.0-51.0); HEMOGLOBIN 8.9 g/dL (13.6-17.8); IMMATURE GRANULOCYTES 0.3 %; IMMATURE GRANULOCYTES ABSOLUTE 0.02 10/3/uL (0.0-0.11); LYMPHOCYTES 20.3 %; LYMPHOCYTES ABSOLUTE 1.22 10/3/uL (0.67-4.30); MEAN CORPUS HGB CONC 33.2 g/dL (32.0-36.0); MEAN CORPUSCULAR HEMOGLOB 27.1 pg (26.0-34.0); MEAN CORPUSCULAR VOLUME 81.5 fL (80-100); MEAN PLATELET VOLUME 9.9 fL (9.2-13.0); MONOCYTES 11.3 %; MONOCYTES ABSOLUTE 0.68 10/3/uL (0.21-1.20); NEUTROPHILS 65.7 %; NEUTROPHILS ABSOLUTE 3.95 10/3/uL (2.02-8.40); PLATELET COUNT 189 10/3/uL (150-400); RBC DISTRIBUTION WIDTH 19.8 % (12.0-16.0)
[2016-08-21 13:32] LABS: MANUAL DIFF NO %; RED CELL COUNT 3.29 10/6/uL (4.7-6.1)
[2016-08-21 13:37] LABS: ALBUMIN 2.8 G/DL (3.5-5.0); CALCIUM, SERUM 7.1 MG/DL (8.5-10.4); CHLORIDE, SERUM 104 MMOL/L (96-112); CO2 (CARBON DIOXIDE) 24 MMOL/L (24-34); GFR AFRICAN AMERICAN 10 ML/MIN (>=60); GFR NON AFRICAN AMERICAN 9 ML/MIN (>=60); GLUCOSE, SERUM 121 MG/DL (60-99); PHOSPHORUS, SERUM 3.3 MG/DL (2.5-4.5); POTASSIUM, SERUM 3.8 MMOL/L (3.5-5.3); SODIUM, SERUM 139 MMOL/L (135-148)
[2016-08-21 13:38] LABS: BUN (BLOOD UREA NITROGEN) 51 MG/DL (6-23); CREATININE 5.84 MG/DL (0.70-1.30)
[2016-08-22 05:38] LABS: BASOPHILS 0.2 %; BASOPHILS ABSOLUTE 0.01 10/3/uL (0.0-0.16); EOSINOPHILS 2.2 %; EOSINOPHILS ABSOLUTE 0.13 10/3/uL (0.0-0.53); HEMATOCRIT 27.6 % (40.0-51.0); HEMOGLOBIN 9.2 g/dL (13.6-17.8); IMMATURE GRANULOCYTES 0.3 %; IMMATURE GRANULOCYTES ABSOLUTE 0.02 10/3/uL (0.0-0.11); LYMPHOCYTES 21.1 %; LYMPHOCYTES ABSOLUTE 1.27 10/3/uL (0.67-4.30); MEAN CORPUS HGB CONC 33.3 g/dL (32.0-36.0); MEAN CORPUSCULAR HEMOGLOB 27.5 pg (26.0-34.0); MEAN CORPUSCULAR VOLUME 82.6 fL (80-100); MEAN PLATELET VOLUME 9.9 fL (9.2-13.0); NEUTROPHILS 61.2 %; NEUTROPHILS ABSOLUTE 3.68 10/3/uL (2.02-8.40); PLATELET COUNT 199 10/3/uL (150-400); RBC DISTRIBUTION WIDTH 19.5 % (12.0-16.0); RED CELL COUNT 3.34 10/6/uL (4.7-6.1)
[2016-08-22 05:39] LABS: MANUAL DIFF NO %
[2016-08-22 06:06] LABS: CALCIUM, SERUM 7.4 MG/DL (8.5-10.4); CHLORIDE, SERUM 104 MMOL/L (96-112); CO2 (CARBON DIOXIDE) 25 MMOL/L (24-34); POTASSIUM, SERUM 3.8 MMOL/L (3.5-5.3); SODIUM, SERUM 140 MMOL/L (135-148)
[2016-08-22 06:10] LABS: BUN (BLOOD UREA NITROGEN) 31 MG/DL (6-23); CREATININE 4.42 MG/DL (0.70-1.30); GFR AFRICAN AMERICAN 14 ML/MIN (>=60); GFR NON AFRICAN AMERICAN 12 ML/MIN (>=60); GLUCOSE, SERUM 95 MG/DL (60-99)
[2016-08-23 18:01] LABS: BASOPHILS 0.2 %; BASOPHILS ABSOLUTE 0.01 10/3/uL (0.0-0.16); EOSINOPHILS ABSOLUTE 0.12 10/3/uL (0.0-0.53); HEMATOCRIT 25.2 % (40.0-51.0); HEMOGLOBIN 8.4 g/dL (13.6-17.8); IMMATURE GRANULOCYTES 0.3 %; IMMATURE GRANULOCYTES ABSOLUTE 0.02 10/3/uL (0.0-0.11); LYMPHOCYTES 19.2 %; LYMPHOCYTES ABSOLUTE 1.14 10/3/uL (0.67-4.30); MEAN CORPUS HGB CONC 33.3 g/dL (32.0-36.0); MEAN CORPUSCULAR HEMOGLOB 27.4 pg (26.0-34.0); MEAN CORPUSCULAR VOLUME 82.1 fL (80-100); MONOCYTES 18.4 %; MONOCYTES ABSOLUTE 1.09 10/3/uL (0.21-1.20); NEUTROPHILS 59.9 %; NEUTROPHILS ABSOLUTE 3.55 10/3/uL (2.02-8.40); PLATELET COUNT 164 10/3/uL (150-400); RED CELL COUNT 3.07 10/6/uL (4.7-6.1); WHITE BLOOD CELLS 5.9 10/3/uL (4.5-10.5)
[2016-08-23 18:02] LABS: MANUAL DIFF NO %
[2016-08-23 18:12] LABS: ALBUMIN 2.8 G/DL (3.5-5.0); CALCIUM, SERUM 7.8 MG/DL (8.5-10.4); CHLORIDE, SERUM 102 MMOL/L (96-112); CO2 (CARBON DIOXIDE) 25 MMOL/L (24-34); GLUCOSE, SERUM 99 MG/DL (60-99); POTASSIUM, SERUM 3.7 MMOL/L (3.5-5.3); SODIUM, SERUM 137 MMOL/L (135-148)
[2016-08-23 18:13] LABS: BUN (BLOOD UREA NITROGEN) 50 MG/DL (6-23); CREATININE 6.53 MG/DL (0.70-1.30); GFR AFRICAN AMERICAN 9 ML/MIN (>=60); GFR NON AFRICAN AMERICAN 8 ML/MIN (>=60); PHOSPHORUS, SERUM 4.5 MG/DL (2.5-4.5)
[2016-08-23 20:00] LABS: TROPONIN I 0.03 NG/ML (<0.05)
[2016-08-24 06:42] LABS: HEMATOCRIT 24.1 % (40.0-51.0); MEAN CORPUS HGB CONC 33.2 g/dL (32.0-36.0); MEAN CORPUSCULAR HEMOGLOB 27.3 pg (26.0-34.0); MEAN CORPUSCULAR VOLUME 82.3 fL (80-100); PLATELET COUNT 150 10/3/uL (150-400); RBC DISTRIBUTION WIDTH 19.9 % (12.0-16.0); RED CELL COUNT 2.93 10/6/uL (4.7-6.1); WHITE BLOOD CELLS 4.1 10/3/uL (4.5-10.5)
[2016-08-24 06:46] LABS: MANUAL DIFF YES %
[2016-08-24 07:00] LABS: ALBUMIN 2.7 G/DL (3.5-5.0); CALCIUM, SERUM 7.6 MG/DL (8.5-10.4); CHLORIDE, SERUM 105 MMOL/L (96-112); CO2 (CARBON DIOXIDE) 26 MMOL/L (24-34); GLUCOSE, SERUM 98 MG/DL (60-99); POTASSIUM, SERUM 3.7 MMOL/L (3.5-5.3); SODIUM, SERUM 140 MMOL/L (135-148); TROPONIN I 0.04 NG/ML (<0.05)
[2016-08-24 07:01] LABS: BUN (BLOOD UREA NITROGEN) 26 MG/DL (6-23); CREATININE 4.19 MG/DL (0.70-1.30); GFR AFRICAN AMERICAN 15 ML/MIN (>=60); GFR NON AFRICAN AMERICAN 13 ML/MIN (>=60); PHOSPHORUS, SERUM 2.5 MG/DL (2.5-4.5)
[2016-08-24 07:35] LABS: BASOPHILS 1 %; BASOPHILS ABSOLUTE (CALC) 0.04 10/3/uL (0.0-0.16); LYMPHOCYTES 17 %; MONOCYTES 10 %; MONOCYTES ABSOLUTE (CALC) 0.41 10/3/uL (0.21-1.20); NEUTROPHILS ABSOLUTE (CALC) 2.95 10/3/uL (2.02-8.40); PLATELET ESTIMATE ADQ (ADEQUATE); SEGMENTED NEUTROPHIL (0) 72 %; TOTAL NUCLEATED CELLS 100
[2016-08-24 07:36] LABS: ANISOCYTOSIS 1+ (5-10/OIF) (0-5/OIF)
[2016-08-25 09:45] LABS: MEAN CORPUS HGB CONC 32.5 g/dL (32.0-36.0); MEAN CORPUSCULAR VOLUME 83.3 fL (80-100); MEAN PLATELET VOLUME 10.3 fL (9.2-13.0); PLATELET COUNT 132 10/3/uL (150-400); RBC DISTRIBUTION WIDTH 20.1 % (12.0-16.0)
[2016-08-25 09:48] LABS: HEMATOCRIT 30.5 % (40.0-51.0); HEMOGLOBIN 9.9 g/dL (13.6-17.8); MANUAL DIFF YES %; RED CELL COUNT 3.66 10/6/uL (4.7-6.1)
[2016-08-25 09:58] LABS: ALBUMIN 2.9 G/DL (3.5-5.0); CALCIUM, SERUM 7.8 MG/DL (8.5-10.4); CHLORIDE, SERUM 102 MMOL/L (96-112); CO2 (CARBON DIOXIDE) 24 MMOL/L (24-34); POTASSIUM, SERUM 3.7 MMOL/L (3.5-5.3); SODIUM, SERUM 137 MMOL/L (135-148)
[2016-08-25 09:59] LABS: BUN (BLOOD UREA NITROGEN) 39 MG/DL (6-23); CREATININE 6.03 MG/DL (0.70-1.30); GFR AFRICAN AMERICAN 10 ML/MIN (>=60); GFR NON AFRICAN AMERICAN 8 ML/MIN (>=60); GLUCOSE, SERUM 121 MG/DL (60-99); PHOSPHORUS, SERUM 3.4 MG/DL (2.5-4.5)
[2016-08-25 10:29] LABS: BAND NEUTROPHILS 2 %; EOSINOPHILS 4 %; EOSINOPHILS ABSOLUTE (CALC) 0.16 10/3/uL (0.0-0.53); LYMPHOCYTES 18 %; LYMPHOCYTES ABSOLUTE (CALC) 0.72 10/3/uL (0.67-4.30); MONOCYTES 4 %; MONOCYTES ABSOLUTE (CALC) 0.16 10/3/uL (0.21-1.20); NEUTROPHILS ABSOLUTE (CALC) 2.96 10/3/uL (2.02-8.40); PLATELET ESTIMATE SLT DEC (ADEQUATE); SEGMENTED NEUTROPHIL (0) 72 %; TOTAL NUCLEATED CELLS 100
[2016-08-25 10:30] LABS: ANISOCYTOSIS 1+ (5-10/OIF) (0-5/OIF)
[2016-08-27 06:33] LABS: BASOPHILS 0.3 %; BASOPHILS ABSOLUTE 0.01 10/3/uL (0.0-0.16); EOSINOPHILS 1.5 %; EOSINOPHILS ABSOLUTE 0.06 10/3/uL (0.0-0.53); HEMOGLOBIN 8.1 g/dL (13.6-17.8); IMMATURE GRANULOCYTES 0.3 %; IMMATURE GRANULOCYTES ABSOLUTE 0.01 10/3/uL (0.0-0.11); LYMPHOCYTES 27.5 %; MEAN CORPUS HGB CONC 32.5 g/dL (32.0-36.0); MEAN CORPUSCULAR HEMOGLOB 27.5 pg (26.0-34.0); MEAN CORPUSCULAR VOLUME 84.4 fL (80-100); MEAN PLATELET VOLUME 9.3 fL (9.2-13.0); MONOCYTES 17.3 %; MONOCYTES ABSOLUTE 0.69 10/3/uL (0.21-1.20); NEUTROPHILS 53.1 %; NEUTROPHILS ABSOLUTE 2.13 10/3/uL (2.02-8.40); PLATELET COUNT 155 10/3/uL (150-400); RBC DISTRIBUTION WIDTH 19.8 % (12.0-16.0); RED CELL COUNT 2.95 10/6/uL (4.7-6.1)
[2016-08-27 06:34] LABS: HEMATOCRIT 24.9 % (40.0-51.0); MANUAL DIFF NO %
[2016-08-27 06:44] LABS: ALBUMIN 2.8 G/DL (3.5-5.0); BUN (BLOOD UREA NITROGEN) 36 MG/DL (6-23); CALCIUM, SERUM 8.1 MG/DL (8.5-10.4); CHLORIDE, SERUM 107 MMOL/L (96-112); CO2 (CARBON DIOXIDE) 25 MMOL/L (24-34); CREATININE 6.12 MG/DL (0.70-1.30); GFR AFRICAN AMERICAN 10 ML/MIN (>=60); GFR NON AFRICAN AMERICAN 8 ML/MIN (>=60); GLUCOSE, SERUM 91 MG/DL (60-99); PHOSPHORUS, SERUM 3.9 MG/DL (2.5-4.5); POTASSIUM, SERUM 4.3 MMOL/L (3.5-5.3); SODIUM, SERUM 142 MMOL/L (135-148)
[2016-08-29 10:17] LABS: BASOPHILS 0.4 %; BASOPHILS ABSOLUTE 0.01 10/3/uL (0.0-0.16); EOSINOPHILS 2.8 %; EOSINOPHILS ABSOLUTE 0.08 10/3/uL (0.0-0.53); HEMATOCRIT 24.6 % (40.0-51.0); HEMOGLOBIN 8.2 g/dL (13.6-17.8); IMMATURE GRANULOCYTES 0.4 %; IMMATURE GRANULOCYTES ABSOLUTE 0.01 10/3/uL (0.0-0.11); LYMPHOCYTES 26.4 %; LYMPHOCYTES ABSOLUTE 0.75 10/3/uL (0.67-4.30); MEAN CORPUS HGB CONC 33.3 g/dL (32.0-36.0); MEAN CORPUSCULAR HEMOGLOB 27.7 pg (26.0-34.0); MEAN CORPUSCULAR VOLUME 83.1 fL (80-100); MONOCYTES 11.3 %; MONOCYTES ABSOLUTE 0.32 10/3/uL (0.21-1.20); NEUTROPHILS 58.7 %; NEUTROPHILS ABSOLUTE 1.67 10/3/uL (2.02-8.40); PLATELET COUNT 155 10/3/uL (150-400); RBC DISTRIBUTION WIDTH 19.5 % (12.0-16.0); RED CELL COUNT 2.96 10/6/uL (4.7-6.1); WHITE BLOOD CELLS 2.8 10/3/uL (4.5-10.5)
[2016-08-29 10:18] LABS: MANUAL DIFF NO %
[2016-08-29 10:30] LABS: CALCIUM, SERUM 8.2 MG/DL (8.5-10.4); CHLORIDE, SERUM 105 MMOL/L (96-112); CO2 (CARBON DIOXIDE) 23 MMOL/L (24-34); CREATININE 5.93 MG/DL (0.70-1.30); GFR AFRICAN AMERICAN 10 ML/MIN (>=60); GFR NON AFRICAN AMERICAN 9 ML/MIN (>=60); PHOSPHORUS, SERUM 3.6 MG/DL (2.5-4.5); POTASSIUM, SERUM 3.6 MMOL/L (3.5-5.3); SODIUM, SERUM 140 MMOL/L (135-148)
[2016-08-29 10:31] LABS: BUN (BLOOD UREA NITROGEN) 49 MG/DL (6-23); GLUCOSE, SERUM 69 MG/DL (60-99)
== END 2016-08-29 14:25 | DRG 252 ==
LOC: ER 09:14 → 5SO 12:17
PROVIDERS: Emergency Medicine; Hospitalist; Internal Medicine Nephrology; Nurse Practitioner; Registered Nurse
PROC: 30233N1 Transfusion of Nonautologous Red Blood Cells into Peripheral Vein, Percutaneous Approach (ICD-10-PCS; principal; 2016-08-17)
PROC: 5A1D60Z (ICD-10-PCS; 2016-08-21)
PROC: 031 Upper Arteries, Bypass (ICD-10-PCS; 2016-08-21)
PROC: 3E0T3CZ (ICD-10-PCS; 2016-08-21)
DX: I13.2 Hypertensive heart and chronic kidney disease with heart failure and with stage 5 chronic kidney disease, or end stage renal disease (principal); N18.6 End stage renal disease; N17.9 Acute kidney failure, unspecified; I47.2 Ventricular tachycardia; I50.22 Chronic systolic (congestive) heart failure; D64.9 Anemia, unspecified; K80.80 Other cholelithiasis without obstruction; I70.203 Unspecified atherosclerosis of native arteries of extremities, bilateral legs; I25.5 Ischemic cardiomyopathy; E53.8 Deficiency of other specified B group vitamins; E87.70 Fluid overload, unspecified; I25.10 Atherosclerotic heart disease of native coronary artery without angina pectoris; J44.9 Chronic obstructive pulmonary disease, unspecified; Z95.2 Presence of prosthetic heart valve; Z79.02 Long term (current) use of antithrombotics/antiplatelets; Z79.899 Other long term (current) drug therapy; Z88.0 Allergy status to penicillin; Z88.2 Allergy status to sulfonamides; Z88.5 Allergy status to narcotic agent; Z88.1 Allergy status to other antibiotic agents; Z87.442 Personal history of urinary calculi; Z79.82 Long term (current) use of aspirin; Z99.2 Dependence on renal dialysis; Z95.5 Presence of coronary angioplasty implant and graft
CPT/HCPCS: 36415; 36430; 36558; 71010; 77001; 78452; 80048; 80069; 80074; 81001; 82270; 82550; 82607; 82728; 82746; 82962; 83540; 83735; 84484; 85014; 85018; 85025; 85610; 85730; 86850; 86900; 86901; 86920; 87389; 93005; 93017; 93306; 93923; 94640; 96374; 97110-GO; 97116-GP; 97161-GP; 97166-GO; 97535-GO; 99291; A9270-GY; A9502; C1769; G0257; G0365; J0153; J0280; J0690; J1940; J2250; J2785; J2795; J3010; J3475; P9016; P9047